=== PATIENT | female | born 1980 | race Caucasian/White ===

== ENCOUNTER 2016-08-05 01:44 | Emergency (ER) | payer SELFPAY ==
[2016-08-05 01:58] VITALS: BP 110/71
--- NOTE | 2016-08-05 02:30 | EDM.PDOC ---
ED HPI ALTERED MENTAL STATUS - General Chief Complaint: Drug or Alcohol Abuse Stated Complaint: [facility] Time Seen by Provider: 08/05/16 01:47 Source of Information: Reports: Patient History Limitations: Reports: No limitations - History of Present Illness INITIAL COMMENTS - FREE TEXT/NARRATIVE: This is a 36-year-old female. She was a local bar this evening and apparently she drank a few beers and started accepting drinks from strangers. She had onset about an hour ago of nausea and vomiting and just couldn't stop vomiting. She's had no diarrhea she denies any significant stomach pain. The ambulance started an IV on her and gave her some Zofran and by the time she arrived to the ER she was no longer nauseated. The patient is concerned that maybe someone slipped her something that was in those drinks. Right now she appears to be without distress and is calm. She denies any abdominal pain. - Related Data Allergies/ADRs: Allergies No Known Allergies Allergy (Verified 08/05/16 01:57) Home Meds: Home Meds . [No Known Home Meds] 08/05/16 [History] Past Medical History - Past Health History Medical/Surgical History: Denies Medical/Surgical History Social & Family History - Tobacco Use Smoking Status *Q: Never Smoker - Caffeine Use Caffeine Use: Reports: Coffee - Recreational Drug Use Recreational Drug Use: No ED ROS GENERAL - Review of Systems Review Of Systems: See Below Constitutional: Denies: fever, chills HEENT: Reports: No symptoms Respiratory: Reports: No Symptoms Cardiovascular: Reports: No symptoms GI/Abdominal: Reports: Nausea, Vomiting. Denies: Abdominal pain : Reports: no symptoms Musculoskeletal: Reports: no symptoms Skin: Reports: no symptoms Neurological: Reports: No Symptoms Psychiatric: Reports: No symptoms Hematologic/Lymphatic: Reports: no symptoms - Physical Exam Exam: See Below Exam Limited By: No limitations General Appearance: alert, WD/WN, no apparent distress Eye Exam: bilateral eye: normal inspection Ears: normal external exam Nose: normal inspection Throat/Mouth: Normal inspection, Normal lips, Normal voice Head Exam: normocephalic Neck: supple Respiratory/Chest: no respiratory distress, lungs clear, normal breath sounds Cardiovascular: regular rate, rhythm, no murmur GI/Abdominal: soft. No: distended, guarding, tender Neuro Exam (Abbreviated): alert, oriented, normal cognition, no motor/sensory deficits Back Exam: full range of motion Extremities: normal inspection, normal range of motion Psychiatric: normal affect, normal mood Skin Exam: Warm, Dry Course - Vital Signs Last Recorded V/S: Last Vital Signs Temp 97 F 08/05/16 01:53 Pulse 113 H 08/05/16 01:53 Resp 18 08/05/16 01:53 BP 110/71 08/05/16 01:53 Pulse Ox 97 08/05/16 01:53 - Orders/Labs/Meds Labs: Laboratory Tests 08/05/16 08/05/16 08/05/16 Range/Units 02:27 02:27 02:27 WBC 8.42 (3.98-10.04) K/mm3 RBC 3.96 L (3.98-5.22) M/mm3 Hgb 12.3 (11.2-15.7) gm/L Hct 37.7 (34.1-44.9) % MCV 95.2 H (79.4-94.8) fl MCH 31.1 (25.6-32.2) pg MCHC 32.6 (32.2-35.5) g/dl RDW Std Deviation 48.7 H (36.4-46.3) fL Plt Count 270 (182-369) K/mm3 MPV 9.5 (9.4-12.3) fl Neut % (Auto) 70.6 (34.0-71.1) % Lymph % (Auto) 19.5 (19.3-51.7) % [place] % (Auto) 8.8 (4.7-12.5) % Eos % (Auto) 0.8 (0.7-5.8) Baso % (Auto) 0.2 (0.1-1.2) % Neut # (Auto) 5.94 (1.56-6.13) K/mm3 Lymph # (Auto) 1.64 (1.18-3.74) K/mm3 [place] # (Auto) 0.74 H (0.24-0.36) K/mm3 Eos # (Auto) 0.07 (0.04-0.36) K/mm3 Baso # (Auto) 0.02 (0.01-0.08) K/mm3 Sodium 141 (136-145) mEq/L Potassium 3.8 (3.5-5.1) mEq/L Chloride 108 H (98-107) mEq/L Carbon Dioxide 24 (21-32) mEq/L Anion Gap 12.8 (5-15) BUN 11 (7-18) mg/dL Creatinine 0.8 (0.55-1.02) mg/dL Est Cr Clr Drug Dosing 99.01 mL/min Estimated GFR (MDRD) > 60 (>60) mL/min BUN/Creatinine Ratio 13.8 L (14-18) Glucose 127 H (74-106) mg/dL Calcium 7.9 L (8.5-10.1) mg/dL Total Bilirubin 0.1 L (0.2-1.0) mg/dL AST 38 H (15-37) U/L ALT 52 (14-59) U/L Alkaline Phosphatase 75 (46-116) U/L Total Protein 7.5 (6.4-8.2) g/dl Albumin 2.9 L (3.4-5.0) g/dl Globulin 4.6 gm/dL Albumin/Globulin Ratio 0.6 L (1-2) Lipase 258 (73-393) U/L HCG, Qual Negative (NEGATIVE) Urine Opiates Screen (NEGATIVE) Ur Buprenorphine Scrn (NEGATIVE) Ur Oxycodone Screen (NEGATIVE) Urine Methadone Screen (NEGATIVE) Ur Propoxyphene Screen (NEGATIVE) Ur Barbiturates Screen (NEGATIVE) Ur Tricyclics Screen (NEGATIVE) Ur Phencyclidine Scrn (NEGATIVE) Ur Amphetamine Screen (NEGATIVE) U Methamphetamines Scrn (NEGATIVE) U Benzodiazepines Scrn (NEGATIVE) U Cocaine Metab Screen (NEGATIVE) U Marijuana (THC) Screen (NEGATIVE) Ethyl Alcohol 0.20 (0.00) gm% 08/05/16 Range/Units 02:35 WBC (3.98-10.04) K/mm3 RBC (3.98-5.22) M/mm3 Hgb (11.2-15.7) gm/L Hct (34.1-44.9) % MCV (79.4-94.8) fl MCH (25.6-32.2) pg MCHC (32.2-35.5) g/dl RDW Std Deviation (36.4-46.3) fL Plt Count (182-369) K/mm3 MPV (9.4-12.3) fl Neut % (Auto) (34.0-71.1) % Lymph % (Auto) (19.3-51.7) % [place] % (Auto) (4.7-12.5) % Eos % (Auto) (0.7-5.8) Baso % (Auto) (0.1-1.2) % Neut # (Auto) (1.56-6.13) K/mm3 Lymph # (Auto) (1.18-3.74) K/mm3 [place] # (Auto) (0.24-0.36) K/mm3 Eos # (Auto) (0.04-0.36) K/mm3 Baso # (Auto) (0.01-0.08) K/mm3 Sodium (136-145) mEq/L Potassium (3.5-5.1) mEq/L Chloride (98-107) mEq/L Carbon Dioxide (21-32) mEq/L Anion Gap (5-15) BUN (7-18) mg/dL Creatinine (0.55-1.02) mg/dL Est Cr Clr Drug Dosing mL/min Estimated GFR (MDRD) (>60) mL/min BUN/Creatinine Ratio (14-18) Glucose (74-106) mg/dL Calcium (8.5-10.1) mg/dL Total Bilirubin (0.2-1.0) mg/dL AST (15-37) U/L ALT (14-59) U/L Alkaline Phosphatase (46-116) U/L Total Protein (6.4-8.2) g/dl Albumin (3.4-5.0) g/dl Globulin gm/dL Albumin/Globulin Ratio (1-2) Lipase (73-393) U/L HCG, Qual (NEGATIVE) Urine Opiates Screen Negative (NEGATIVE) Ur Buprenorphine Scrn Negative (NEGATIVE) Ur Oxycodone Screen Negative (NEGATIVE) Urine Methadone Screen Negative (NEGATIVE) Ur Propoxyphene Screen Negative (NEGATIVE) Ur Barbiturates Screen Negative (NEGATIVE) Ur Tricyclics Screen Negative (NEGATIVE) Ur Phencyclidine Scrn Negative (NEGATIVE) Ur Amphetamine Screen Negative (NEGATIVE) U Methamphetamines Scrn Negative (NEGATIVE) U Benzodiazepines Scrn Negative (NEGATIVE) U Cocaine Metab Screen Negative (NEGATIVE) U Marijuana (THC) Screen Negative (NEGATIVE) Ethyl Alcohol (0.00) gm% - Re-Assessments/Exams Free Text/Narrative Re-Assessment/Exam: 08/05/16 03:08 I spoke to the patient regarding her test results. I did not find anything in the urine drug screen to account for her nausea and vomiting. Her alcohol level is 0.2 which one would not think is enough to cause nausea and vomiting considering that she does drink on occasion. I again encouraged her not to take drinks from strangers since there is any number of things they can put in the drink to sedate her and or make her nauseated without us being able to determine what it is. Departure - Departure Time of Disposition: 03:22 Disposition: Home, Self-Care 01 Condition: good Clinical Impression: Nausea and vomiting Qualifiers: Vomiting type: unspecified Vomiting Intractability: non-intractable Qualified Code(s): R11.2 - Nausea with vomiting, unspecified Alcohol intoxication Qualifiers: Complication of substance-induced condition: uncomplicated Qualified Code(s): F10.920 - Alcohol use, unspecified with intoxication, uncomplicated Forms: ED Department Discharge Additional Instructions: Please avoid any free alcoholic drinks that you gets from strange men, stick to clear liquids only for the next 24 hours to settle your stomach, return to the ER if needed
== END 2016-08-05 03:43 | disposition home or self-care (01) ==
LOC: JD.ED 01:44
DX: F10.920 Alcohol use, unspecified with intoxication, uncomplicated (principal); R11.2 Nausea with vomiting, unspecified
CPT/HCPCS: 36415; 80053; 80306; 83690; 84703; 85025; 99285; G0480; 99282

== ENCOUNTER 2018-01-02 08:32 | Inpatient (IN) | payer MEDICAID ==
[2018-01-02] MEDS ORDERED: Adenosine 6 MG/2 ML SDV ONE (08:55)
[2018-01-02] MEDS ORDERED: Adenosine 12 MG/4 ML SDV ONE (08:55)
[2018-01-02] MEDS ORDERED: Adenosine 6 MG/2 ML SDV IVPUSH ONE ×2 (08:55→09:00)
--- NOTE | 2018-01-02 08:56 | EDM.PDOC ---
ED HPI GENERAL MEDICAL PROBLEM - General Chief Complaint: Chest Pain Stated Complaint: SOB Time Seen by Provider: 01/02/18 08:56 - History of Present Illness INITIAL COMMENTS - FREE TEXT/NARRATIVE: 37-year-old female presents emergency room with chest discomfort shortness of breath and palpitations. This started several hours ago. Patient cannot identify any triggering event just before this. However for the second time in her life she did a line of meth last night, also the patient is a habitual heavy alcohol drinker 8-12 drinks nightly. Her last drink was last night. She is uncertain of her hCG status but does not believe she is last period was a month and a half ago. She has no prior history of heart problems. Chest Pain Score (Numeric/FACES): 9 - Related Data Allergies Allergy/AdvReac Type Severity Reaction Status Date / Time No Known Allergies Allergy Verified 01/02/18 08:58 Home Meds: Home Meds . [No Known Home Meds] 08/05/16 [History] Past Medical History - Past Health History Medical/Surgical History: Denies Medical/Surgical History Social & Family History - Caffeine Use Caffeine Use: Reports: Coffee ED ROS GENERAL - Review of Systems Review Of Systems: See Below Constitutional: Denies: Fever, Chills HEENT: Denies: No Symptoms Respiratory: Reports: Shortness of Breath Cardiovascular: Reports: Chest Pain, Palpitations Endocrine: Reports: No Symptoms GI/Abdominal: Reports: No Symptoms : Reports: No Symptoms Musculoskeletal: Reports: No Symptoms Skin: Reports: No Symptoms Neurological: Reports: Dizziness Psychiatric: Reports: Anxiety. Denies: No Symptoms Hematologic/Lymphatic: Reports: No Symptoms Immunologic: Reports: No Symptoms ED EXAM, GENERAL - Physical Exam Exam: See Below Exam Limited By: No Limitations General Appearance: Alert, Mild Distress (Chest discomfort anxiety and shortness of breath) Eye Exam: Bilateral Eye: EOMI, Normal Inspection, PERRL Ears: Normal External Exam, Normal Canal, Hearing Grossly Normal, Normal TMs Nose: Normal Inspection, Normal Mucosa, No Blood Throat/Mouth: Normal Inspection, Normal Lips, Normal Teeth, Normal Gums, Normal Oropharynx, Normal Voice, No Airway Compromise Neck: Normal Inspection, Supple, Non-Tender, Full Range of Motion, Other ( Thyroid nonpalpable). No: Lymphadenopathy (L), Lymphadenopathy (R) Respiratory/Chest: No Respiratory Distress, Lungs Clear Cardiovascular: Regular Rate, Rhythm, No Edema, No Murmur, Tachycardia GI/Abdominal: Normal Bowel Sounds, Soft, Non-Tender Back Exam: Normal Inspection. No: CVA Tenderness (L), CVA Tenderness (R) Neurological: Alert, Oriented, Normal Cognition, No Motor/Sensory Deficits Psychiatric: Anxious Skin Exam: Warm, Dry, Intact Lymphatic: No Adenopathy Course - Vital Signs Last Recorded V/S: Last Vital Signs Temp 37.0 C 01/02/18 10:40 Pulse 128 H 01/02/18 10:40 Resp 20 01/02/18 10:40 BP 128/92 H 01/02/18 10:40 Pulse Ox 100 01/02/18 10:40 - Orders/Labs/Meds Orders: Active Orders 24 hr Category Date Time Status EKG Documentation Completion [RC] STAT Care 01/02/18 09:09 Active Chest 1V Frontal [CR] Stat Exams 01/02/18 09:09 Taken Lactated Ringers [Ringers, Lactated] 1,000 ml Med 01/02/18 10:25 Active IV STAT Magnesium Sulfate/Water [Magnesium Sulfate 2 GM in Med 01/02/18 12:10 Active Water 50 ML] 2 gm Premix Bag 1 bag IV ONETIME Potassium Chloride [KCl 10 MEQ in Water 100 ML] 10 meq Med 01/02/18 10:15 Active Premix Bag 1 bag IV Q1H Medication Orders Potassium Chloride 10 meq/ (Premix) 100 mls @ 100 mls/hr IV Q1H CHRISTELLE Stop: 01/02/18 14:14 Last Admin: 01/02/18 11:19 Dose: 100 mls/hr Infusion: 01/02/18 11:19 Dose: 100 mls/hr Admin: 01/02/18 10:20 Dose: 100 mls/hr Lactated Ringer's (Ringers, Lactated) 1,000 mls @ 150 mls/hr IV STAT ONE Stop: 01/02/18 17:04 Last Admin: 01/02/18 10:20 Dose: 150 mls/hr Magnesium Sulfate 2 gm/ Premix 50 mls @ 25 mls/hr IV ONETIME ONE Stop: 01/02/18 14:09 Last Admin: 01/02/18 12:10 Dose: 25 mls/hr Labs: Laboratory Tests 01/02/18 01/02/18 01/02/18 Range/Units 09:17 09:19 09:19 WBC 9.86 (3.98-10.04) K/mm3 RBC 5.01 (3.98-5.22) M/mm3 Hgb 13.8 (11.2-15.7) gm/L Hct 42.1 (34.1-44.9) % MCV 84.0 (79.4-94.8) fl MCH 27.5 (25.6-32.2) pg MCHC 32.8 (32.2-35.5) g/dl RDW Std Deviation 55.7 H (36.4-46.3) fL Plt Count 365 (182-369) K/mm3 MPV 9.4 (9.4-12.3) fl Neutrophils % (Manual) 73 H (40-60) % Band Neutrophils % 0 (0-10) % Lymphocytes % (Manual) 24 (20-40) % Atypical Lymphs % 0 % Monocytes % (Manual) 2 (2-10) % Eosinophils % (Manual) 1 (0.7-5.8) % Basophils % (Manual) 0 L (0.1-1.2) Platelet Estimate Adequate RBC Morph Comment Normal Sodium 132 L (136-145) mEq/L Potassium 2.6 L (3.5-5.1) mEq/L Chloride 95 L (98-107) mEq/L Carbon Dioxide 20 L (21-32) mEq/L Anion Gap 19.6 H (5-15) BUN 6 L (7-18) mg/dL Creatinine 1.0 (0.55-1.02) mg/dL Est Cr Clr Drug Dosing TNP Estimated GFR (MDRD) > 60 (>60) mL/min BUN/Creatinine Ratio 6.0 L (14-18) Glucose 131 H (74-106) mg/dL Calcium 11.7 H (8.5-10.1) mg/dL Magnesium 1.4 L (1.8-2.4) mg/dl Total Bilirubin 1.2 H (0.2-1.0) mg/dL AST 188 H (15-37) U/L ALT 163 H (14-59) U/L Alkaline Phosphatase 131 H (46-116) U/L Troponin I < 0.017 (0.00-0.056) ng/mL Total Protein 9.9 H (6.4-8.2) g/dl Albumin 3.4 (3.4-5.0) g/dl Globulin 6.5 gm/dL Albumin/Globulin Ratio 0.5 L (1-2) TSH 3rd Generation 2.136 (0.358-3.74) uIU/mL HCG, Quant < 1.0 mIU/mL Urine Color (Yellow) Urine Appearance (Clear) Urine pH (5.0-8.0) Ur Specific [place] (1.005-1.030) Urine Protein (Negative) Urine Glucose (UA) (Negative) Urine Ketones (Negative) Urine Occult Blood (Negative) Urine Nitrite (Negative) Urine Bilirubin (Negative) Urine Urobilinogen (0.2-1.0) Ur Leukocyte Esterase (Negative) Urine RBC (0-5) /hpf Urine WBC (0-5) /hpf Ur Epithelial Cells (0-5) /hpf Urine Bacteria (FEW) /hpf Urine Mucus (FEW) /hpf Urine Opiates Screen (NEGATIVE) Ur Buprenorphine Scrn (NEGATIVE) Ur Oxycodone Screen (NEGATIVE) Urine Methadone Screen (NEGATIVE) Ur Propoxyphene Screen (NEGATIVE) Ur Barbiturates Screen (NEGATIVE) Ur Tricyclics Screen (NEGATIVE) Ur Phencyclidine Scrn (NEGATIVE) Ur Amphetamine Screen (NEGATIVE) U Methamphetamines Scrn (NEGATIVE) U Benzodiazepines Scrn (NEGATIVE) U Cocaine Metab Screen (NEGATIVE) U Marijuana (THC) Screen (NEGATIVE) Ethyl Alcohol 0.01 (0.00) gm% 01/02/18 01/02/18 Range/Units 10:28 10:28 WBC (3.98-10.04) K/mm3 RBC (3.98-5.22) M/mm3 Hgb (11.2-15.7) gm/L Hct (34.1-44.9) % MCV (79.4-94.8) fl MCH (25.6-32.2) pg MCHC (32.2-35.5) g/dl RDW Std Deviation (36.4-46.3) fL Plt Count (182-369) K/mm3 MPV (9.4-12.3) fl Neutrophils % (Manual) (40-60) % Band Neutrophils % (0-10) % Lymphocytes % (Manual) (20-40) % Atypical Lymphs % % Monocytes % (Manual) (2-10) % Eosinophils % (Manual) (0.7-5.8) % Basophils % (Manual) (0.1-1.2) Platelet Estimate RBC Morph Comment Sodium (136-145) mEq/L Potassium (3.5-5.1) mEq/L Chloride (98-107) mEq/L Carbon Dioxide (21-32) mEq/L Anion Gap (5-15) BUN (7-18) mg/dL Creatinine (0.55-1.02) mg/dL Est Cr Clr Drug Dosing Estimated GFR (MDRD) (>60) mL/min BUN/Creatinine Ratio (14-18) Glucose (74-106) mg/dL Calcium (8.5-10.1) mg/dL Magnesium (1.8-2.4) mg/dl Total Bilirubin (0.2-1.0) mg/dL AST (15-37) U/L ALT (14-59) U/L Alkaline Phosphatase (46-116) U/L Troponin I (0.00-0.056) ng/mL Total Protein (6.4-8.2) g/dl Albumin (3.4-5.0) g/dl Globulin gm/dL Albumin/Globulin Ratio (1-2) TSH 3rd Generation (0.358-3.74) uIU/mL HCG, Quant mIU/mL Urine Color Yellow (Yellow) Urine Appearance Clear (Clear) Urine pH 7.0 (5.0-8.0) Ur Specific [place] 1.015 (1.005-1.030) Urine Protein Negative (Negative) Urine Glucose (UA) Negative (Negative) Urine Ketones Negative (Negative) Urine Occult Blood Negative (Negative) Urine Nitrite Negative (Negative) Urine Bilirubin Negative (Negative) Urine Urobilinogen 0.2 (0.2-1.0) Ur Leukocyte Esterase Trace H (Negative) Urine RBC 0-5 (0-5) /hpf Urine WBC 0-5 (0-5) /hpf Ur Epithelial Cells 0-5 (0-5) /hpf Urine Bacteria Few (FEW) /hpf Urine Mucus Few (FEW) /hpf Urine Opiates Screen Negative (NEGATIVE) Ur Buprenorphine Scrn Negative (NEGATIVE) Ur Oxycodone Screen Negative (NEGATIVE) Urine Methadone Screen Negative (NEGATIVE) Ur Propoxyphene Screen Negative (NEGATIVE) Ur Barbiturates Screen Negative (NEGATIVE) Ur Tricyclics Screen Negative (NEGATIVE) Ur Phencyclidine Scrn Negative (NEGATIVE) Ur Amphetamine Screen Presumptive positive H (NEGATIVE) U Methamphetamines Scrn Presumptive positive H (NEGATIVE) U Benzodiazepines Scrn Negative (NEGATIVE) U Cocaine Metab Screen Negative (NEGATIVE) U Marijuana (THC) Screen Negative (NEGATIVE) Ethyl Alcohol (0.00) gm% Meds: Medications Generic Name Dose Route Start Last Admin Trade Name Freq PRN Reason Stop Dose Admin Potassium Chloride 10 meq/ 100 mls @ 100 mls/hr 01/02/18 10:15 01/02/18 11:19 Premix IV 01/02/18 14:14 100 mls/hr Q1H CHRISTELLE Administration Lactated Ringer's 1,000 mls @ 150 mls/hr 01/02/18 10:25 01/02/18 10:20 Ringers, Lactated IV 01/02/18 17:04 150 mls/hr STAT ONE Administration Magnesium Sulfate 2 gm/ Premix 50 mls @ 25 mls/hr 01/02/18 12:10 01/02/18 12: 10 IV 01/02/18 14:09 25 mls/hr ONETIME ONE Administration Discontinued Medications Generic Name Dose Route Start Last Admin Trade Name Freq PRN Reason Stop Dose Admin Adenosine Confirm 01/02/18 08:55 01/02/18 09:15 Adenocard Administered 01/02/18 08:56 Not Given Dose 18 mg .ROUTE .STK-MED ONE Adenosine Confirm 01/02/18 08:55 01/02/18 09:15 Adenocard Administered 01/02/18 08:56 Not Given Dose 12 mg .ROUTE .STK-MED ONE Adenosine 6 mg 01/02/18 08:55 01/02/18 08:57 Adenocard IVPUSH 01/02/18 08:56 6 mg NOW ONE Administration Adenosine 12 mg 01/02/18 09:00 01/02/18 09:01 Adenocard IVPUSH 01/02/18 09:01 12 mg NOW ONE Administration Diltiazem HCl Confirm 01/02/18 09:04 01/02/18 09:15 Cardizem Administered 01/02/18 09:05 Not Given Dose 50 mg .ROUTE .STK-MED ONE Diltiazem HCl 10 mg 01/02/18 09:05 01/02/18 09:05 Cardizem IVPUSH 01/02/18 09:06 10 mg ONETIME ONE Administration Diltiazem HCl 10 mg 01/02/18 09:25 01/02/18 09:28 Cardizem IVPUSH 01/02/18 09:26 10 mg ONETIME ONE Administration Potassium Chloride Confirm 01/02/18 10:16 01/02/18 10:32 Kcl 10 Meq In Water 100 Ml Administered 01/02/18 10:17 Not Given Dose 200 mls @ as directed .ROUTE .STK-MED ONE Lactated Ringer's Confirm 01/02/18 10:16 01/02/18 10:44 Ringers, Lactated Administered 01/02/18 10:17 Not Given Dose 1,000 mls @ as directed .ROUTE .STK-MED ONE Sodium Chloride 1,000 mls @ 999 mls/hr 01/02/18 09:20 01/02/18 09:20 Normal Saline IV 01/02/18 10:20 999 mls/hr ONETIME ONE Administration Magnesium Sulfate 4 gm/ Premix 100 mls @ 25 mls/hr 01/02/18 11:58 01/02/18 12 :11 IV 01/02/18 11:59 Not Given ONETIME ONE Magnesium Sulfate Confirm 01/02/18 12:00 01/02/18 12:05 Magnesium Sulfate 2 Gm In Water 50 Ml Administered 01/02/18 12:01 Not Given Dose 50 mls @ as directed .ROUTE .STK-MED ONE Lorazepam 1 mg 01/02/18 10:03 01/02/18 10:08 Ativan IVPUSH 01/02/18 10:04 1 mg ONETIME ONE Administration Metoclopramide HCl Confirm 01/02/18 09:16 Reglan Administered 01/02/18 09:17 Dose 10 mg .ROUTE .STK-MED ONE Midazolam HCl Confirm 01/02/18 09:14 Versed 1 Mg/Ml Administered 01/02/18 09:15 Dose 4 mg .ROUTE .STK-MED ONE Propofol Confirm 01/02/18 09:15 Diprivan 20 Ml Administered 01/02/18 09:16 Dose 200 mg .ROUTE .STK-MED ONE - Re-Assessments/Exams Free Text/Narrative Re-Assessment/Exam: 01/02/18 12:10 Patient was brought to the emergency room with breathing difficulties and some chest pressure. She was noticed to be in supraventricular tachycardia rate 162- 163. She was attempted with adenosine for 6 mg and then 12 mg with virtually no effect except for some mild slowing of the pulse rate that was brief it dropped to the 150s no pauses. She was taken to trauma to for cardioversion she was given 4 mg of Versed the did not affect much she was given propofol and using biphasic direct cardioversion synchronized was attempted with 50 J with no effect and then 100 J with no effect. After the adenosine she received 10 mg of diltiazem had a transient slowing this was repeated. Fluids were running labs pending. Her labs did come back which show a marked hypokalemia and her magnesium is 1.4 she is started on supplements for these. Case was discussed with Dr. Fuller manager environmental health at [facility] who agrees with treatment plan patient will be admitted for electrolyte replacement therapy and further observation case discussed with Dr. Shay our hospitalist patient will go to ICU. Currently the patient is not having chest difficulty or breathing difficulties her pulse is in the 120s to low 130s. Departure - Departure Time of Disposition: 11:35 Disposition: Admitted As Inpatient 67 Clinical Impression: Supraventricular tachycardia, Hypokalemia, Hypomagnesemia, Alcoholism, Methamphetamine abuse Referrals: PCP,None [Primary Care Provider] - Forms: ED Department Discharge - My Orders Last 24 Hours: My Active Orders 01/02/18 09:09 EKG Documentation Completion [RC] STAT Chest 1V Frontal [CR] Stat 01/02/18 10:15 Potassium Chloride [KCl 10 MEQ in Water 100 ML] 10 meq Premix Bag 1 bag IV Q1H 01/02/18 10:25 Lactated Ringers [Ringers, Lactated] 1,000 ml IV STAT 01/02/18 12:10 Magnesium Sulfate/Water [Magnesium Sulfate 2 GM in Water 50 ML] 2 gm Premix Bag 1 bag IV ONETIME - Assessment/Plan Last 24 Hours: My Active Orders 01/02/18 09:09 EKG Documentation Completion [RC] STAT Chest 1V Frontal [CR] Stat 01/02/18 10:15 Potassium Chloride [KCl 10 MEQ in Water 100 ML] 10 meq Premix Bag 1 bag IV Q1H 01/02/18 10:25 Lactated Ringers [Ringers, Lactated] 1,000 ml IV STAT 01/02/18 12:10 Magnesium Sulfate/Water [Magnesium Sulfate 2 GM in Water 50 ML] 2 gm Premix Bag 1 bag IV ONETIME
[2018-01-02] MEDS ORDERED: Diltiazem 50 MG/10 ML SDV ONE (09:04)
[2018-01-02] MEDS ORDERED: Diltiazem 50 MG/10 ML SDV IVPUSH ONE ×2 (09:05→09:25)
[2018-01-02] MEDS ORDERED: Midazolam 1 MG/ML 2 ML SDV ONE (09:14)
[2018-01-02] MEDS ORDERED: Propofol 200 MG/20 ML SDV ONE (09:15)
[2018-01-02] MEDS ORDERED: Metoclopramide 10 MG/2 ML SDV ONE (09:16)
[2018-01-02] MEDS ORDERED: Sodium Chloride 0.9% 1,000 ML IV ONE (09:20)
--- NOTE | 2018-01-02 10:01 | PCM.PREANE ---
Preanesthetic Assessment - Procedure Proposed Procedure: emergency cardioversion - Anesthesia/Transfusion/Family Hx Anesthesia History: Prior Anesthesia Without Reaction Family History of Anesthesia Reaction: No Transfusion History: No Prior Transfusion(s) - Review of Systems General: No Symptoms Pulmonary: Shortness of Breath (this am at 5) Cardiovascular: Chest Pain, Lightheadedness (this am at 5) Gastrointestinal: No Symptoms Neurological: No Symptoms Other: Reports: Depression - Physical Assessment NPO Status Date: 01/02/18 NPO Status Time: 06:00 (3 alcira drinks and an orange) Pulse: 170 Blood Pressure: 153/97 Vital Signs: Last Vital Signs Temp Pulse 138 H 01/02/18 09:28 Resp BP 138/95 H 01/02/18 09:28 Pulse Ox Height: 5 ft 6 in Weight: 88.451 kg ASA Class: 2E Mental Status: Alert & Oriented x3 Airway Class: Mallampati = 1 Dentition: Reports: Normal Dentition Thyro-Mental Finger Breadths: 3 Mouth Opening Finger Breadths: 3 ROM/Head Extension: Full Lungs: Clear to Auscultation, Normal Respiratory Effort Cardiovascular: Regular Rate, Tachycardia - Lab Values: Laboratory Last Values WBC 9.86 K/mm3 (3.98-10.04) 01/02/18 09:19 RBC 5.01 M/mm3 (3.98-5.22) 01/02/18 09:19 Hgb 13.8 gm/L (11.2-15.7) 01/02/18 09:19 Hct 42.1 % (34.1-44.9) 01/02/18 09:19 MCV 84.0 fl (79.4-94.8) 01/02/18 09:19 MCH 27.5 pg (25.6-32.2) 01/02/18 09:19 MCHC 32.8 g/dl (32.2-35.5) 01/02/18 09:19 RDW Std Deviation 55.7 fL (36.4-46.3) H 01/02/18 09:19 Plt Count 365 K/mm3 (182-369) 01/02/18 09:19 MPV 9.4 fl (9.4-12.3) 01/02/18 09:19 Neutrophils % (Manual) 73 % (40-60) H 01/02/18 09:19 Band Neutrophils % 0 % (0-10) 01/02/18 09:19 Lymphocytes % (Manual) 24 % (20-40) 01/02/18 09:19 Atypical Lymphs % 0 % 01/02/18 09:19 Monocytes % (Manual) 2 % (2-10) 01/02/18 09:19 Eosinophils % (Manual) 1 % (0.7-5.8) 01/02/18 09:19 Basophils % (Manual) 0 (0.1-1.2) L 01/02/18 09:19 Platelet Estimate Adequate 01/02/18 09:19 RBC Morph Comment Normal 01/02/18 09:19 - Allergies Allergies/Adverse Reactions: Allergies Allergy/AdvReac Type Severity Reaction Status Date / Time No Known Allergies Allergy Verified 01/02/18 08:58 - Blood Blood Available: No - Acknowledgements Anesthesia Type Planned: MAC Pt an Appropriate Candidate for the Planned Anesthesia: Yes Alternatives and Risks of Anesthesia Discussed w Pt/Guardian: Yes Pt/Guardian Understands and Agrees with Anesthesia Plan: Yes PreAnesthesia Questionnaire - Past Health History Medical/Surgical History: Denies Medical/Surgical History Other HEENT History: states is suppose to wear eyeglasses, has not been to routine eye doctor. Cardiovascular History: Reports: Other (See Below) (sister with tacycardia issues) Respiratory History: Reports: Other (See Below) Other Respiratory History: "hayfever" in childhood. 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 Thought alcira would help- had 3 drinks. Also ate orange at 6 am. In Er and needing cardioversion after other attempts failed. Alert and oriented. Discussed possibly being partly awake for cardioversion because of full stomach. Agrees. - SUBSTANCE USE Smoking Status *Q: Never Smoker Second Hand Smoke Exposure: No Days Per Week of Alcohol Use: 7 Number of Drinks Per Day: 10 Total Drinks Per Week: 70 Recreational Drug Use History: Yes Recreational Drug Type: Reports: Marijuana/Hashish, Methamphetamine - HOME MEDS Home Medications: Home Meds . [No Known Home Meds] 08/05/16 [History] - CURRENT (IN HOUSE) MEDS Current Meds: Current Medications Discontinued Medications Adenosine (Adenocard) Confirm Administered Dose 18 mg .ROUTE .STK-MED ONE Stop: 01/02/18 08:56 Last Admin: 01/02/18 09:15 Dose: Not Given Adenosine (Adenocard) Confirm Administered Dose 12 mg .ROUTE .STK-MED ONE Stop: 01/02/18 08:56 Last Admin: 01/02/18 09:15 Dose: Not Given Adenosine (Adenocard) 6 mg IVPUSH NOW ONE Stop: 01/02/18 08:56 Last Admin: 01/02/18 08:57 Dose: 6 mg Adenosine (Adenocard) 12 mg IVPUSH NOW ONE Stop: 01/02/18 09:01 Last Admin: 01/02/18 09:01 Dose: 12 mg Diltiazem HCl (Cardizem) Confirm Administered Dose 50 mg .ROUTE .STK-MED ONE Stop: 01/02/18 09:05 Last Admin: 01/02/18 09:15 Dose: Not Given Diltiazem HCl (Cardizem) 10 mg IVPUSH ONETIME ONE Stop: 01/02/18 09:06 Last Admin: 01/02/18 09:05 Dose: 10 mg Diltiazem HCl (Cardizem) 10 mg IVPUSH ONETIME ONE Stop: 01/02/18 09:26 Last Admin: 01/02/18 09:28 Dose: 10 mg Metoclopramide HCl (Reglan) Confirm Administered Dose 10 mg .ROUTE .STK-MED ONE Stop: 01/02/18 09:17 Midazolam HCl (Versed 1 Mg/Ml) Confirm Administered Dose 4 mg .ROUTE .STK-MED ONE Stop: 01/02/18 09:15 Propofol (Diprivan 20 Ml) Confirm Administered Dose 200 mg .ROUTE .STK-MED ONE Stop: 01/02/18 09:16
[2018-01-02] MEDS ORDERED: LORazepam 2 MG/ML SDV IVPUSH ONE (10:03)
[2018-01-02] MEDS ORDERED: Lactated Ringers 1,000 ML ONE (10:16)
[2018-01-02] MEDS: Potassium Chloride 10 MEQ in Premix Bag 1 BAG IV SCH ×7 (10:20→18:07)
[2018-01-02] MEDS ORDERED: Lactated Ringers 1,000 ML IV ONE (10:25)
--- NOTE | 2018-01-02 10:30 | PCM48HPAN ---
Post Anesthesia Note - EVALUATION WITHIN 48HRS OF ANESTHETIC Vital Signs in Normal Range: No (HR still elevated- continue meds) Patient Participated in Evaluation: Yes Respiratory Function Stable: Yes Airway Patent: Yes Cardiovascular Function Stable: Yes (States feels better- up to commode) Hydration Status Stable: Yes Pain Control Satisfactory: Yes Nausea and Vomiting Control Satisfactory: Yes Mental Status Recovered: Yes Pulse Rate: 133 SaO2: 100 Resp Rate: 20 Blood Pressure: 153/97
[2018-01-02] MEDS ORDERED: Magnesium Sulfate/Water 4 GM in Premix Bag 1 BAG IV ONE (11:58)
[2018-01-02] MEDS ORDERED: Magnesium Sulfate/Water 50 ML ONE (12:00)
[2018-01-02] MEDS ORDERED: Magnesium Sulfate/Water 2 GM in Premix Bag 1 BAG IV ONE ×2 (12:10→16:00)
[2018-01-02] MEDS ORDERED: Nicotine 21 MG/24 Hr Patch TRDERM PRN (12:46)
[2018-01-02] MEDS ORDERED: hydrALAZINE 20 MG/ML SDV IVPUSH PRN (12:46)
[2018-01-02] MEDS ORDERED: LORazepam 2 MG/ML SDV IVPUSH PRN ×2 (12:46→14:23)
[2018-01-02] MEDS ORDERED: Metoprolol Tartrate 5 MG/5 ML SDV IVPUSH PRN (12:46)
[2018-01-02] MEDS ORDERED: Ondansetron 4 MG/2 ML SDV IV PRN (12:48)
[2018-01-02] MEDS ORDERED: LORazepam 2 MG/ML SDV IV PRN (12:48)
[2018-01-02] MEDS ORDERED: Albuterol/Ipratropium 3.0-0.5 MG/3 ML Neb Soln NEB PRN (12:48)
[2018-01-02] MEDS ORDERED: Pantoprazole 40 MG Vial IVPUSH ONE (12:48)
[2018-01-02] MEDS ORDERED: oxyCODONE 5 MG Tab PO PRN (12:48)
[2018-01-02] MEDS ORDERED: Promethazine 12.5 MG in Sodium Chloride 0.9% 50 ML IV PRN (12:48)
[2018-01-02] MEDS ORDERED: cloNIDine 0.1 MG Tab PO PRN (12:48)
[2018-01-02] MEDS ORDERED: Ibuprofen 400 MG Tab PO PRN (12:48)
[2018-01-02] MEDS ORDERED: Haloperidol Lactate 5 MG/ML SDV IM PRN (12:48)
[2018-01-02] MEDS ORDERED: HYDROmorphone 0.5 MG/0.5 ML Syringe IVPUSH PRN (12:48)
[2018-01-02] MEDS ORDERED: Metoprolol Tartrate 50 MG Tab PO ONE (12:54)
--- NOTE | 2018-01-02 12:56 | PCM.HP ---
H&P History of Present Illness - General Date of Service: 01/02/18 Admit Problem/Dx: SVT and Substance Abuse Source of Information: Patient, Family, Provider, RN Notes Reviewed History Limitations: Reports: No Limitations - History of Present Illness Initial Comments - Free Text/Narative: This is a 37 yo white female with past medical hx/o depression and chronic substance abuse who comes in for evaluation of chest discomfort associated with heart palpitations and shortness of breath that started several hours ago. She denies doing anything unusual. However she admits to using methamphetamine last night. She also drinks a pack (10) of small bottled ratna daily. Her last drink was this morning with 2 small of it. Patient carries no hx/o thyroid or cardiac problems. She reports no chemical rehab treatment in the past. She admits to drinking alcohol heavily for many years now. Her chronic alcohol use has now affecting her quality of life and she wants to get better. She states her drinking and depression had gotten worse since her took away her children from her when they all went to [facility] in [place]. Patient denies being suicidal or homicidal. She is not on any anti-depressant and is not seeing any specialist for her psychiatric illness. He initial work up in ED shows an unremarkable CBC. Her chemistry is significant for sodium of 132, potassium of 2.6, Cl of 95, CO2 of 20, AG of 19.6, BUN of 6, BS of 131, Ca2 + of 11.7, Mg of 1.4, Total bilirubin of 1.2, AST of 188, ALT of 163, GGT of 353 , Alk phos of 131, Total protein of 9.9. Her TSH and HcG are both wnl. Her UA is negative for UTI. Her UDS is pos for Methamphetamines and Amphetamines. Her ANTHONY level is 0.01. While in ED she was treated for SVT to include chemical cardioversion with adenosine. Unfortunately, she did not respond to initial treatment and therefore she is coming to us for further medical management. Patient is full code. Chest Pain Score (Numeric/FACES): 9 - Related Data Allergies/Adverse Reactions: Allergies Allergy/AdvReac Type Severity Reaction Status Date / Time No Known Allergies Allergy Verified 01/02/18 13:54 Home Medications: Home Meds . [No Known Home Meds] 08/05/16 [History] Past Medical History - Past Health History Medical/Surgical History: Denies Medical/Surgical History Other HEENT History: states is suppose to wear eyeglasses, has not been to routine eye doctor. Cardiovascular History: Reports: Other (See Below) (sister with tacycardia issues) Respiratory History: Reports: Other (See Below) Other Respiratory History: "hayfever" in childhood. Gastrointestinal History: Reports: None IMAGERY ANALYST History: Reports: Neurological History: Reports: Head Trauma Psychiatric History: Reports: Addiction, Depression, Suicide Attempt, Suicidal Ideation - Infectious Disease History Infectious Disease History: Reports: Chicken Pox, Hepatitis C, Other (See Below) Other Infectious Disease History: malaria - Past Surgical History Female Surgical History: Reports: Section - History Comment History Comment: Snorted a line of meth last evening-her second time- occasional marijuana use- Pt complained of chest pain and shortness of breath this am at 5. Thought ratna would help- had 3 drinks. Also ate orange at 6 am. In Er and needing cardioversion after other attempts failed. Alert and oriented. Discussed possibly being partly awake for cardioversion because of full stomach. Agrees. Social & Family History - Tobacco Use Smoking Status *Q: Never Smoker Second Hand Smoke Exposure: No - Caffeine Use Caffeine Use: Reports: Coffee - Alcohol Use Days Per Week of Alcohol Use: 7 Number of Drinks Per Day: 10 Total Drinks Per Week: 70 - Recreational Drug Use Recreational Drug Use: Yes Recreational Drug Type: Reports: Marijuana/Hashish, Methamphetamine H&P Review of Systems - Review of Systems: Review Of Systems: See Below General: Denies: Fever, Chills, Fatigue HEENT: Reports: No Symptoms Pulmonary: Reports: Shortness of Breath Cardiovascular: Reports: Palpitations, Other (chest discomfort). Denies: Chest Pain, Dyspnea on Exertion, Orthopnea, Edema, Lightheadedness, Syncope, Claudication, Blood Pressure Problem Gastrointestinal: Denies: Abdominal Pain, Nausea, Vomiting Genitourinary: Reports: No Symptoms Musculoskeletal: Reports: No Symptoms Skin: Denies: Cyanosis, Pallor, Diaphoresis, Erythema Psychiatric: Reports: Anxiety. Denies: Depression, Agitation, Hallucinations, Suicidal Ideation, Homicidal Ideation Neurological: Reports: Dizziness, Tremors. Denies: Confusion, Headache, Numbness, Paresthesia, Seizure, Tingling, Trouble Speaking, Difficulty Walking, Weakness, Change in Speech, Gait Disturbance Hematologic/Lymphatic: Reports: No Symptoms Immunologic: Reports: No Symptoms Exam - Exam Exam: See Below - Vital Signs Vital Signs: Last Vital Signs Temp 37.0 C 01/02/18 10:40 Pulse 128 H 01/02/18 10:40 Resp 20 01/02/18 10:40 BP 128/92 H 01/02/18 10:40 Pulse Ox 100 01/02/18 10:40 Weight: 88.451 kg - Exam General: Alert, Oriented, Cooperative. No: Mild Distress HEENT: Conjunctiva Clear, EACs Clear, EOMI, Hearing Intact, Mucosa Moist & Blanchard , Nares Patent, Normal Nasal Septum, Posterior Pharynx Clear, Pupils Equal, Pupils Reactive Neck: Supple Lungs: Clear to Auscultation, Normal Respiratory Effort Cardiovascular: Regular Rhythm, Tachycardia GI/Abdominal Exam: Normal Bowel Sounds, Soft, Non-Tender, No Organomegaly, No Distention, No Abnormal Bruit, No Mass (Female) Exam: Deferred Rectal (Female) Exam: Deferred Back Exam: Normal Inspection, Decreased Range of Motion Extremities: Normal Inspection, Normal Range of Motion, Non-Tender, No Pedal Edema, Normal Capillary Refill Peripheral Pulses: 3+: Posterior Tibial (L), Posterior Tibial (R), Dorsalis Pedis (L), Dorsalis Pedis (R) Skin: Warm, Dry, Intact Neuro Extensive - Mental Status: Oriented x3, Normal Cognition, Memory Intact Neuro Extensive - Motor, Sensory, Reflexes: CN II-XII Intact, Normal Gait Psychiatric: Other (mild tremors). No: Alert, Normal Affect, Normal Mood, Anxious, Agitated - Patient Data Lab Results Last 24 hrs: Laboratory Results - last 24 hr 01/02/18 01/02/18 01/02/18 Range/Units 09:17 09:19 09:19 WBC 9.86 (3.98-10.04) K/mm3 RBC 5.01 (3.98-5.22) M/mm3 Hgb 13.8 (11.2-15.7) gm/L Hct 42.1 (34.1-44.9) % MCV 84.0 (79.4-94.8) fl MCH 27.5 (25.6-32.2) pg MCHC 32.8 (32.2-35.5) g/dl RDW Std Deviation 55.7 H (36.4-46.3) fL Plt Count 365 (182-369) K/mm3 MPV 9.4 (9.4-12.3) fl Neutrophils % (Manual) 73 H (40-60) % Band Neutrophils % 0 (0-10) % Lymphocytes % (Manual) 24 (20-40) % Atypical Lymphs % 0 % Monocytes % (Manual) 2 (2-10) % Eosinophils % (Manual) 1 (0.7-5.8) % Basophils % (Manual) 0 L (0.1-1.2) Platelet Estimate Adequate RBC Morph Comment Normal Sodium 132 L (136-145) mEq/L Potassium 2.6 L (3.5-5.1) mEq/L Chloride 95 L (98-107) mEq/L Carbon Dioxide 20 L (21-32) mEq/L Anion Gap 19.6 H (5-15) BUN 6 L (7-18) mg/dL Creatinine 1.0 (0.55-1.02) mg/dL Est Cr Clr Drug Dosing TNP Estimated GFR (MDRD) > 60 (>60) mL/min BUN/Creatinine Ratio 6.0 L (14-18) Glucose 131 H (74-106) mg/dL Calcium 11.7 H (8.5-10.1) mg/dL Magnesium 1.4 L (1.8-2.4) mg/dl Total Bilirubin 1.2 H (0.2-1.0) mg/dL AST 188 H (15-37) U/L ALT 163 H (14-59) U/L Alkaline Phosphatase 131 H (46-116) U/L Troponin I < 0.017 (0.00-0.056) ng/mL Total Protein 9.9 H (6.4-8.2) g/dl Albumin 3.4 (3.4-5.0) g/dl Globulin 6.5 gm/dL Albumin/Globulin Ratio 0.5 L (1-2) TSH 3rd Generation 2.136 (0.358-3.74) uIU/mL HCG, Quant < 1.0 mIU/mL Urine Color (Yellow) Urine Appearance (Clear) Urine pH (5.0-8.0) Ur Specific [place] (1.005-1.030) Urine Protein (Negative) Urine Glucose (UA) (Negative) Urine Ketones (Negative) Urine Occult Blood (Negative) Urine Nitrite (Negative) Urine Bilirubin (Negative) Urine Urobilinogen (0.2-1.0) Ur Leukocyte Esterase (Negative) Urine RBC (0-5) /hpf Urine WBC (0-5) /hpf Ur Epithelial Cells (0-5) /hpf Urine Bacteria (FEW) /hpf Urine Mucus (FEW) /hpf Urine Opiates Screen (NEGATIVE) Ur Buprenorphine Scrn (NEGATIVE) Ur Oxycodone Screen (NEGATIVE) Urine Methadone Screen (NEGATIVE) Ur Propoxyphene Screen (NEGATIVE) Ur Barbiturates Screen (NEGATIVE) Ur Tricyclics Screen (NEGATIVE) Ur Phencyclidine Scrn (NEGATIVE) Ur Amphetamine Screen (NEGATIVE) U Methamphetamines Scrn (NEGATIVE) U Benzodiazepines Scrn (NEGATIVE) U Cocaine Metab Screen (NEGATIVE) U Marijuana (THC) Screen (NEGATIVE) Ethyl Alcohol 0.01 (0.00) gm% 01/02/18 01/02/18 Range/Units 10:28 10:28 WBC (3.98-10.04) K/mm3 RBC (3.98-5.22) M/mm3 Hgb (11.2-15.7) gm/L Hct (34.1-44.9) % MCV (79.4-94.8) fl MCH (25.6-32.2) pg MCHC (32.2-35.5) g/dl RDW Std Deviation (36.4-46.3) fL Plt Count (182-369) K/mm3 MPV (9.4-12.3) fl Neutrophils % (Manual) (40-60) % Band Neutrophils % (0-10) % Lymphocytes % (Manual) (20-40) % Atypical Lymphs % % Monocytes % (Manual) (2-10) % Eosinophils % (Manual) (0.7-5.8) % Basophils % (Manual) (0.1-1.2) Platelet Estimate RBC Morph Comment Sodium (136-145) mEq/L Potassium (3.5-5.1) mEq/L Chloride (98-107) mEq/L Carbon Dioxide (21-32) mEq/L Anion Gap (5-15) BUN (7-18) mg/dL Creatinine (0.55-1.02) mg/dL Est Cr Clr Drug Dosing Estimated GFR (MDRD) (>60) mL/min BUN/Creatinine Ratio (14-18) Glucose (74-106) mg/dL Calcium (8.5-10.1) mg/dL Magnesium (1.8-2.4) mg/dl Total Bilirubin (0.2-1.0) mg/dL AST (15-37) U/L ALT (14-59) U/L Alkaline Phosphatase (46-116) U/L Troponin I (0.00-0.056) ng/mL Total Protein (6.4-8.2) g/dl Albumin (3.4-5.0) g/dl Globulin gm/dL Albumin/Globulin Ratio (1-2) TSH 3rd Generation (0.358-3.74) uIU/mL HCG, Quant mIU/mL Urine Color Yellow (Yellow) Urine Appearance Clear (Clear) Urine pH 7.0 (5.0-8.0) Ur Specific [place] 1.015 (1.005-1.030) Urine Protein Negative (Negative) Urine Glucose (UA) Negative (Negative) Urine Ketones Negative (Negative) Urine Occult Blood Negative (Negative) Urine Nitrite Negative (Negative) Urine Bilirubin Negative (Negative) Urine Urobilinogen 0.2 (0.2-1.0) Ur Leukocyte Esterase Trace H (Negative) Urine RBC 0-5 (0-5) /hpf Urine WBC 0-5 (0-5) /hpf Ur Epithelial Cells 0-5 (0-5) /hpf Urine Bacteria Few (FEW) /hpf Urine Mucus Few (FEW) /hpf Urine Opiates Screen Negative (NEGATIVE) Ur Buprenorphine Scrn Negative (NEGATIVE) Ur Oxycodone Screen Negative (NEGATIVE) Urine Methadone Screen Negative (NEGATIVE) Ur Propoxyphene Screen Negative (NEGATIVE) Ur Barbiturates Screen Negative (NEGATIVE) Ur Tricyclics Screen Negative (NEGATIVE) Ur Phencyclidine Scrn Negative (NEGATIVE) Ur Amphetamine Screen Presumptive positive H (NEGATIVE) U Methamphetamines Scrn Presumptive positive H (NEGATIVE) U Benzodiazepines Scrn Negative (NEGATIVE) U Cocaine Metab Screen Negative (NEGATIVE) U Marijuana (THC) Screen Negative (NEGATIVE) Ethyl Alcohol (0.00) gm% Result Diagrams: 01/02/18 09:19 01/02/18 09:19 Problem List Initiated/Reviewed/Updated: Yes Orders Last 24hrs: Active Orders 24 hr Category Date Time Status CIWAA Assessment [RC] Q15M Care 01/02/18 12:48 Active CIWAA Assessment [RC] Q1H Care 01/02/18 12:48 Active CIWAA Assessment [RC] Q30M Care 01/02/18 12:48 Active CIWAA Assessment [RC] Q4H Care 01/02/18 12:48 Active Cardiac Monitoring [RC] CONTINUOUS Care 01/02/18 12:48 Active EKG Documentation Completion [RC] STAT Care 01/02/18 09:09 Active Height and Weight [RC] DAILY Care 01/02/18 12:48 Active Intake and Output [RC] QSHIFT Care 01/02/18 12:48 Active Notify Provider Consults [RC] ASDIRECTED Care 01/02/18 12:51 Active Notify Provider [RC] PRN Care 01/02/18 12:48 Active Oxygen Therapy [RC] PRN Care 01/02/18 12:48 Active RT Aerosol Therapy [RC] ASDIRECTED Care 01/02/18 12:50 Active Up With Assistance [RC] ASDIRECTED Care 01/02/18 12:48 Active Up ad Serina [RC] ASDIRECTED Care 01/02/18 12:48 Active VTE/DVT Education [RC] PER UNIT ROUTINE Care 01/02/18 12:48 Active Vital Signs [RC] Q4H Care 01/02/18 12:48 Active Consult to Case Management/Manufacturing Storeperson [CONS] Cons 01/02/18 12:48 Active Routine Consult to Physician [CONS] Routine Cons 01/02/18 12:48 Active Consult to Spiritual Care [CONS] Routine Cons 01/02/18 12:48 Active Regular Diet [DIET] Diet 01/02/18 Lunch Active Abdomen Ltd [US] Stat Exams 01/02/18 12:47 Ordered Chest 1V Frontal [CR] Stat Exams 01/02/18 09:09 Taken Echo Comp wo Cont [US] Stat Exams 01/02/18 12:54 Ordered CBC WITH AUTO DIFF [HEME] AM Lab 01/03/18 05:11 Ordered COMPREHENSIVE METABOLIC PN,CMP [CHEM] AM Lab 01/03/18 05:11 Ordered COMPREHENSIVE METABOLIC PN,CMP [CHEM] AM Lab 01/04/18 05:11 Ordered COMPREHENSIVE METABOLIC PN,CMP [CHEM] AM Lab 01/05/18 05:11 Ordered COMPREHENSIVE METABOLIC PN,CMP [CHEM] AM Lab 01/06/18 05:11 Ordered GAMMA GLUTAMYL TRANSFERASE,GGT [CHEM] Stat Lab 01/02/18 12:46 Ordered MAGNESIUM [CHEM] AM Lab 01/03/18 05:11 Ordered MAGNESIUM [CHEM] AM Lab 01/04/18 05:11 Ordered MAGNESIUM [CHEM] AM Lab 01/05/18 05:11 Ordered MAGNESIUM [CHEM] AM Lab 01/06/18 05:11 Ordered Albuterol/Ipratropium [DuoNeb 3.0-0.5 MG/3 ML] Med 01/02/18 12:48 Ordered 3 ml NEB Q4H PRN Famotidine [Pepcid] Med 01/02/18 21:00 Ordered 20 mg PO Q12H Folic Acid Med 01/03/18 09:00 Ordered 1 mg PO DAILY HYDROmorphone [Dilaudid] Med 01/02/18 12:48 Ordered 0.25 mg IVPUSH Q2H PRN Haloperidol Lactate [Haldol] Med 01/02/18 12:48 Ordered 2 mg IM Q4H PRN Ibuprofen [Motrin] Med 01/02/18 12:48 Ordered 400 mg PO Q6H PRN LORazepam [Ativan] Med 01/02/18 12:48 Ordered 1 mg IV Q6H PRN LORazepam [Ativan] Med 01/02/18 12:46 Ordered 2 mg IVPUSH Q4H PRN Lactated Ringers [Ringers, Lactated] 1,000 ml Med 01/02/18 10:25 Active IV STAT Magnesium Rep Pharmacy to Dose [Pharmacy to Dose - Med 01/02/18 13:00 Ordered Magnesium Replacement] 1 dose .XX ASDIRECTED Magnesium Sulfate/Water [Magnesium Sulfate 2 GM in Med 01/02/18 12:10 Active Water 50 ML] 2 gm Premix Bag 1 bag IV ONETIME Metoprolol Tartrate [Lopressor] Med 01/02/18 12:46 Ordered 5 mg IVPUSH Q4H PRN Metoprolol Tartrate [Lopressor] Med 01/02/18 12:54 Once 50 mg PO ONETIME ONE Metoprolol Tartrate [Lopressor] Med 01/02/18 21:00 Ordered 50 mg PO Q12H Multivitamins,Therapeutic [Thera] Med 01/03/18 09:00 Ordered 1 each PO DAILY Nicotine [Habitrol] Med 01/02/18 12:46 Ordered 21 mg TRDERM DAILY PRN Ondansetron [Zofran] Med 01/02/18 12:48 Ordered 4 mg IV Q6H PRN Pantoprazole [ProTONIX IV] Med 01/02/18 12:48 Once 40 mg IVPUSH ONETIME ONE Potassium Chloride [KCl 10 MEQ in Water 100 ML] 10 meq Med 01/02/18 10:15 Active Premix Bag 1 bag IV Q1H Potassium Rep Pharmacy to Dose [Pharmacy to Dose - Med 01/02/18 13:00 Ordered Potassium Replacement] 1 dose .XX ASDIRECTED Promethazine [Phenergan] 12.5 mg Med 01/02/18 12:48 Ordered Sodium Chloride 0.9% [Normal Saline] 50 ml IV Q6H QUEtiapine [SEROquel] Med 01/02/18 21:00 Ordered 50 mg PO BEDTIME Thiamine [Vitamin B-1] Med 01/03/18 09:00 Ordered 100 mg PO DAILY Thiamine [Vitamin B-1] 200 mg Med 01/02/18 12:48 Ordered Sodium Chloride 0.9% [Normal Saline] 50 ml IV ONETIME Topiramate [Topamax] Med 01/02/18 21:00 Ordered 25 mg PO BID cloNIDine [Catapres] Med 01/02/18 12:48 Ordered 0.1 mg PO Q4H PRN hydrALAZINE [Apresoline] Med 01/02/18 12:46 Ordered 20 mg IVPUSH Q4H PRN oxyCODONE Med 01/02/18 12:48 Ordered 5 mg PO Q4H PRN Seizure Precautions [OM.PC] Routine Oth 01/02/18 12:48 Ordered Sequential Compression Device [OM.PC] Per Unit Routine Oth 01/02/18 12:49 Ordered Resuscitation Status Routine Resus Stat 01/02/18 12:48 Ordered Medication Orders Albuterol/Ipratropium (Duoneb 3.0-0.5 Mg/3 Ml) 3 ml NEB Q4H PRN PRN Reason: Shortness Of Breath/wheezing Clonidine HCl (Catapres) 0.1 mg PO Q4H PRN PRN Reason: Agitation Famotidine (Pepcid) 20 mg PO Q12H [facility] Folic Acid (Folic Acid) 1 mg PO DAILY [facility]EL[facility] Stop: 01/05/18 09:01 Haloperidol Lactate (Haldol) 2 mg IM Q4H PRN PRN Reason: Agitation Hydralazine HCl (Apresoline) 20 mg IVPUSH Q4H PRN PRN Reason: Hypertension Hydromorphone HCl (Dilaudid) 0.25 mg IVPUSH Q2H PRN PRN Reason: Pain (severe 7-10) Potassium Chloride 10 meq/ (Premix) 100 mls @ 100 mls/hr IV Q1H [facility]ELLE Stop: 01/02/18 14:14 Last Admin: 01/02/18 12:22 Dose: 100 mls/hr Infusion: 01/02/18 12:19 Dose: 100 mls/hr Admin: 01/02/18 11:19 Dose: 100 mls/hr Infusion: 01/02/18 11:19 Dose: 100 mls/hr Admin: 01/02/18 10:20 Dose: 100 mls/hr Lactated Ringer's (Ringers, Lactated) 1,000 mls @ 150 mls/hr IV STAT ONE Stop: 01/02/18 17:04 Last Admin: 01/02/18 10:20 Dose: 150 mls/hr Magnesium Sulfate 2 gm/ Premix 50 mls @ 25 mls/hr IV ONETIME ONE Stop: 01/02/18 14:09 Last Admin: 01/02/18 12:10 Dose: 25 mls/hr Promethazine HCl 12.5 mg/ (Sodium Chloride) 50.5 mls @ 100 mls/hr IV Q6H PRN PRN Reason: Nausea/Vomiting Thiamine HCl 200 mg/ Sodium (Chloride) 52 mls @ 100 mls/hr IV ONETIME ONE Stop: 01/02/18 13:18 Ibuprofen (Motrin) 400 mg PO Q6H PRN PRN Reason: Pain (mild 1-3) Lorazepam (Ativan) 2 mg IVPUSH Q4H PRN PRN Reason: Seizures Lorazepam (Ativan) 1 mg IV Q6H PRN PRN Reason: Anxiety Magnesium Sulfate (Pharmacy To Dose - Magnesium Replacement) 1 dose .XX ASDIRECTED [facility] Metoprolol Tartrate (Lopressor) 5 mg IVPUSH Q4H PRN PRN Reason: Tachycardia Metoprolol Tartrate (Lopressor) 50 mg PO Q12H [facility] Metoprolol Tartrate (Lopressor) 50 mg PO ONETIME ONE Stop: 01/02/18 12:55 Multivitamins (Thera) 1 each PO DAILY [facility] Stop: 01/06/18 09:01 Nicotine (Habitrol) 21 mg TRDERM DAILY PRN PRN Reason: Nicotine Dependence Ondansetron HCl (Zofran) 4 mg IV Q6H PRN PRN Reason: Nausea/Vomiting Oxycodone HCl (Oxycodone) 5 mg PO Q4H PRN PRN Reason: Pain (moderate 4-6) Pantoprazole Sodium (Protonix Iv) 40 mg IVPUSH ONETIME ONE Stop: 01/02/18 12:49 Potassium Chloride (Pharmacy To Dose - Potassium Replacement) 1 dose .XX ASDIRECTED [facility] Quetiapine Fumarate (Seroquel) 50 mg PO BEDTIME [facility] Thiamine HCl (Vitamin B-1) 100 mg PO DAILY [facility] Topiramate (Topamax) 25 mg PO BID [facility] Assessment/Plan Comment:: Assessment/Plan: Acute: SVT - Likely 2/2 Combined stimulant and electrolytes abnormality - Unresponsive to Cardizem and Adenosine Cardioversion - TSH is normal - Denies heavy caffeine intake - HR still in the 140s - Start Cardizem drip and titrate to keep HR < 100 - Metoprolol 25 mg po BID - PRN Lopressor for HR > 115 Possible Early Signs of ETOH Withdrawal - ANTHONY level 0.01 - Admits to being a heavy drinker for many years now - She drinks about 10 small bottles of Ratna daily - She wants help - Dr. 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
[2018-01-02] MEDS ORDERED: Metoprolol Tartrate 5 MG/5 ML SDV IVPUSH ONE (13:04)
[2018-01-02] MEDS ORDERED: Metoprolol Tartrate 5 MG/5 ML SDV ONE (13:04)
[2018-01-02] MEDS: Diltiazem 125 MG in Sodium Chloride 0.9% 100 ML IV SCH (14:19)
[2018-01-02] MEDS ORDERED: QUEtiapine 25 MG Tab PO ONE (14:19)
[2018-01-02] MEDS ORDERED: Topiramate 25 MG Tab PO STA (14:19)
[2018-01-02] MEDS ORDERED: chlordiazePOXIDE 25 MG Cap PO ONE (14:20)
[2018-01-02] MEDS: Sodium Chloride 0.9% 1,000 ML IV SCH ×2 (16:12→23:03)
[2018-01-02] MEDS: Metoprolol Tartrate 50 MG Tab PO SCH (20:34)
[2018-01-02] MEDS: Famotidine 20 MG Tab PO SCH (20:34)
[2018-01-02] MEDS: QUEtiapine 25 MG Tab PO SCH (20:35)
[2018-01-02] MEDS: Topiramate 25 MG Tab PO SCH (20:35)
[2018-01-03] MEDS: Diltiazem 125 MG in Sodium Chloride 0.9% 100 ML IV SCH (04:37)
[2018-01-03] MEDS: Sodium Chloride 0.9% 1,000 ML IV SCH (05:48)
--- NOTE | 2018-01-03 08:20 | CR ---
Chest: Portable view of the chest was obtained. Comparison: No prior chest x-ray. Heart size and mediastinum are normal. Lungs are clear. Bony structures are unremarkable. Impression: 1. Nothing acute is seen on two-view chest x-ray. Diagnostic code #1
--- NOTE | 2018-01-03 08:37 | PCM.PN ---
- General Info Date of Service: 01/03/18 Admission Dx/Problem (Free Text): SVT and Substance Abuse Subjective Update: Follow Up Functional Status: Reports: Pain Controlled, Tolerating Diet, Ambulating, Urinating, New Symptoms - Review of Systems General: Denies: Fever, Weakness, Fatigue, Malaise, Chills HEENT: Reports: No Symptoms Pulmonary: Denies: Shortness of Breath Cardiovascular: Denies: Chest Pain, Dyspnea on Exertion, Lightheadedness Gastrointestinal: Denies: Abdominal Pain, Nausea, Vomiting Genitourinary: Reports: No Symptoms Musculoskeletal: Reports: No Symptoms Skin: Reports: No Symptoms Neurological: Reports: Headache. Denies: Confusion, Dizziness, Pre-Existing Deficit, Seizure, Tremors, Difficulty Walking, Weakness, Change in Speech, Gait Disturbance Psychiatric: Denies: Confusion, Depression, Mood Lability, Anxiety, Agitation, Cravings, Hallucinations, Suicidal Ideation, Homicidal Ideation Systems Review Comment:: No overnight or acute issues. She slept pretty good. She is now off cardizem drip and her heart rates are well controlled. Her only complaint today is a mild headache. Her abnormal labs have significantly improved. Her liver U/S showed mild fatty infiltrate. - Patient Data Vitals - Most Recent: Last Vital Signs Temp 36.3 C 01/03/18 08:00 Pulse 85 01/03/18 08:00 Resp 16 01/03/18 08:00 BP 102/75 01/03/18 08:00 Pulse Ox 100 01/03/18 08:00 Weight - Most Recent: 92.125 kg I&O - Last 24 Hours: Intake & Output 01/02/18 01/03/18 01/03/18 22:59 06:59 14:59 Intake Total 3608 1905 Output Total 900 Balance 3608 1905 -900 Lab Results Last 24 Hours: Laboratory Results - last 24 hr 01/02/18 01/02/18 01/02/18 Range/Units 09:17 09:17 09:19 WBC (3.98-10.04) K/mm3 RBC (3.98-5.22) M/mm3 Hgb (11.2-15.7) gm/L Hct (34.1-44.9) % MCV (79.4-94.8) fl MCH (25.6-32.2) pg MCHC (32.2-35.5) g/dl RDW Std Deviation (36.4-46.3) fL Plt Count (182-369) K/mm3 MPV (9.4-12.3) fl Neut % (Auto) (34.0-71.1) % Lymph % (Auto) (19.3-51.7) % Grant % (Auto) (4.7-12.5) % Eos % (Auto) (0.7-5.8) Baso % (Auto) (0.1-1.2) % Neut # (Auto) (1.56-6.13) K/mm3 Lymph # (Auto) (1.18-3.74) K/mm3 Grant # (Auto) (0.24-0.36) K/mm3 Eos # (Auto) (0.04-0.36) K/mm3 Baso # (Auto) (0.01-0.08) K/mm3 Neutrophils % (Manual) (40-60) % Band Neutrophils % (0-10) % Lymphocytes % (Manual) (20-40) % Atypical Lymphs % % Monocytes % (Manual) (2-10) % Eosinophils % (Manual) (0.7-5.8) % Basophils % (Manual) (0.1-1.2) Platelet Estimate RBC Morph Comment Sodium 132 L (136-145) mEq/L Potassium 2.6 L (3.5-5.1) mEq/L Chloride 95 L (98-107) mEq/L Carbon Dioxide 20 L (21-32) mEq/L Anion Gap 19.6 H (5-15) BUN 6 L (7-18) mg/dL Creatinine 1.0 (0.55-1.02) mg/dL Est Cr Clr Drug Dosing TNP Estimated GFR (MDRD) > 60 (>60) mL/min BUN/Creatinine Ratio 6.0 L (14-18) Glucose 131 H (74-106) mg/dL Calcium 11.7 H (8.5-10.1) mg/dL Magnesium 1.4 L (1.8-2.4) mg/dl Total Bilirubin 1.2 H (0.2-1.0) mg/dL GGT 353 H (5-55) U/L AST 188 H (15-37) U/L ALT 163 H (14-59) U/L Alkaline Phosphatase 131 H (46-116) U/L Troponin I < 0.017 (0.00-0.056) ng/mL Total Protein 9.9 H (6.4-8.2) g/dl Albumin 3.4 (3.4-5.0) g/dl Globulin 6.5 gm/dL Albumin/Globulin Ratio 0.5 L (1-2) Triglycerides (<150) mg/dL Cholesterol (<200) mg/dL LDL Cholesterol Direct (<100) mg/dL HDL Cholesterol (40-59) mg/dL TSH 3rd Generation 2.136 (0.358-3.74) uIU/mL HCG, Quant < 1.0 mIU/mL Urine Color (Yellow) Urine Appearance (Clear) Urine pH (5.0-8.0) Ur Specific [place] (1.005-1.030) Urine Protein (Negative) Urine Glucose (UA) (Negative) Urine Ketones (Negative) Urine Occult Blood (Negative) Urine Nitrite (Negative) Urine Bilirubin (Negative) Urine Urobilinogen (0.2-1.0) Ur Leukocyte Esterase (Negative) Urine RBC (0-5) /hpf Urine WBC (0-5) /hpf Ur Epithelial Cells (0-5) /hpf Urine Bacteria (FEW) /hpf Urine Mucus (FEW) /hpf Urine Opiates Screen (NEGATIVE) Ur Buprenorphine Scrn (NEGATIVE) Ur Oxycodone Screen (NEGATIVE) Urine Methadone Screen (NEGATIVE) Ur Propoxyphene Screen (NEGATIVE) Ur Barbiturates Screen (NEGATIVE) Ur Tricyclics Screen (NEGATIVE) Ur Phencyclidine Scrn (NEGATIVE) Ur Amphetamine Screen (NEGATIVE) U Methamphetamines Scrn (NEGATIVE) U Benzodiazepines Scrn (NEGATIVE) U Cocaine Metab Screen (NEGATIVE) U Marijuana (THC) Screen (NEGATIVE) Ethyl Alcohol 0.01 (0.00) gm% 01/02/18 01/02/18 01/02/18 Range/Units 09:19 10:28 10:28 WBC 9.86 (3.98-10.04) K/mm3 RBC 5.01 (3.98-5.22) M/mm3 Hgb 13.8 (11.2-15.7) gm/L Hct 42.1 (34.1-44.9) % MCV 84.0 (79.4-94.8) fl MCH 27.5 (25.6-32.2) pg MCHC 32.8 (32.2-35.5) g/dl RDW Std Deviation 55.7 H (36.4-46.3) fL Plt Count 365 (182-369) K/mm3 MPV 9.4 (9.4-12.3) fl Neut % (Auto) (34.0-71.1) % Lymph % (Auto) (19.3-51.7) % [place] % (Auto) (4.7-12.5) % Eos % (Auto) (0.7-5.8) Baso % (Auto) (0.1-1.2) % Neut # (Auto) (1.56-6.13) K/mm3 Lymph # (Auto) (1.18-3.74) K/mm3 [place] # (Auto) (0.24-0.36) K/mm3 Eos # (Auto) (0.04-0.36) K/mm3 Baso # (Auto) (0.01-0.08) K/mm3 Neutrophils % (Manual) 73 H (40-60) % Band Neutrophils % 0 (0-10) % Lymphocytes % (Manual) 24 (20-40) % Atypical Lymphs % 0 % Monocytes % (Manual) 2 (2-10) % Eosinophils % (Manual) 1 (0.7-5.8) % Basophils % (Manual) 0 L (0.1-1.2) Platelet Estimate Adequate RBC Morph Comment Normal Sodium (136-145) mEq/L Potassium (3.5-5.1) mEq/L Chloride (98-107) mEq/L Carbon Dioxide (21-32) mEq/L Anion Gap (5-15) BUN (7-18) mg/dL Creatinine (0.55-1.02) mg/dL Est Cr Clr Drug Dosing Estimated GFR (MDRD) (>60) mL/min BUN/Creatinine Ratio (14-18) Glucose (74-106) mg/dL Calcium (8.5-10.1) mg/dL Magnesium (1.8-2.4) mg/dl Total Bilirubin (0.2-1.0) mg/dL GGT (5-55) U/L AST (15-37) U/L ALT (14-59) U/L Alkaline Phosphatase (46-116) U/L Troponin I (0.00-0.056) ng/mL Total Protein (6.4-8.2) g/dl Albumin (3.4-5.0) g/dl Globulin gm/dL Albumin/Globulin Ratio (1-2) Triglycerides (<150) mg/dL Cholesterol (<200) mg/dL LDL Cholesterol Direct (<100) mg/dL HDL Cholesterol (40-59) mg/dL TSH 3rd Generation (0.358-3.74) uIU/mL HCG, Quant mIU/mL Urine Color Yellow (Yellow) Urine Appearance Clear (Clear) Urine pH 7.0 (5.0-8.0) Ur Specific [place] 1.015 (1.005-1.030) Urine Protein Negative (Negative) Urine Glucose (UA) Negative (Negative) Urine Ketones Negative (Negative) Urine Occult Blood Negative (Negative) Urine Nitrite Negative (Negative) Urine Bilirubin Negative (Negative) Urine Urobilinogen 0.2 (0.2-1.0) Ur Leukocyte Esterase Trace H (Negative) Urine RBC 0-5 (0-5) /hpf Urine WBC 0-5 (0-5) /hpf Ur Epithelial Cells 0-5 (0-5) /hpf Urine Bacteria Few (FEW) /hpf Urine Mucus Few (FEW) /hpf Urine Opiates Screen Negative (NEGATIVE) Ur Buprenorphine Scrn Negative (NEGATIVE) Ur Oxycodone Screen Negative (NEGATIVE) Urine Methadone Screen Negative (NEGATIVE) Ur Propoxyphene Screen Negative (NEGATIVE) Ur Barbiturates Screen Negative (NEGATIVE) Ur Tricyclics Screen Negative (NEGATIVE) Ur Phencyclidine Scrn Negative (NEGATIVE) Ur Amphetamine Screen Presumptive positive H (NEGATIVE) U Methamphetamines Scrn Presumptive positive H (NEGATIVE) U Benzodiazepines Scrn Negative (NEGATIVE) U Cocaine Metab Screen Negative (NEGATIVE) U Marijuana (THC) Screen Negative (NEGATIVE) Ethyl Alcohol (0.00) gm% 01/03/18 01/03/18 Range/Units 06:00 06:00 WBC 5.33 (3.98-10.04) K/mm3 RBC 3.62 L (3.98-5.22) M/mm3 Hgb 10.2 L (11.2-15.7) gm/L Hct 32.4 L (34.1-44.9) % MCV 89.5 (79.4-94.8) fl MCH 28.2 (25.6-32.2) pg MCHC 31.5 L (32.2-35.5) g/dl RDW Std Deviation 59.1 H (36.4-46.3) fL Plt Count 227 (182-369) K/mm3 MPV 9.7 (9.4-12.3) fl Neut % (Auto) 64.5 (34.0-71.1) % Lymph % (Auto) 27.4 (19.3-51.7) % Grant % (Auto) 6.8 (4.7-12.5) % Eos % (Auto) 0.9 (0.7-5.8) Baso % (Auto) 0.2 (0.1-1.2) % Neut # (Auto) 3.44 (1.56-6.13) K/mm3 Lymph # (Auto) 1.46 (1.18-3.74) K/mm3 [place] # (Auto) 0.36 (0.24-0.36) K/mm3 Eos # (Auto) 0.05 (0.04-0.36) K/mm3 Baso # (Auto) 0.01 (0.01-0.08) K/mm3 Neutrophils % (Manual) (40-60) % Band Neutrophils % (0-10) % Lymphocytes % (Manual) (20-40) % Atypical Lymphs % % Monocytes % (Manual) (2-10) % Eosinophils % (Manual) (0.7-5.8) % Basophils % (Manual) (0.1-1.2) Platelet Estimate RBC Morph Comment Sodium 136 (136-145) mEq/L Potassium 3.7 (3.5-5.1) mEq/L Chloride 107 (98-107) mEq/L Carbon Dioxide 22 (21-32) mEq/L Anion Gap 10.7 (5-15) BUN 10 (7-18) mg/dL Creatinine 0.9 (0.55-1.02) mg/dL Est Cr Clr Drug Dosing 80.90 Estimated GFR (MDRD) > 60 (>60) mL/min BUN/Creatinine Ratio 11.1 L (14-18) Glucose 79 (74-106) mg/dL Calcium 7.4 L (8.5-10.1) mg/dL Magnesium 2.1 (1.8-2.4) mg/dl Total Bilirubin 1.0 (0.2-1.0) mg/dL GGT (5-55) U/L AST 249 H (15-37) U/L ALT 144 H (14-59) U/L Alkaline Phosphatase 92 (46-116) U/L Troponin I (0.00-0.056) ng/mL Total Protein 6.9 (6.4-8.2) g/dl Albumin 2.3 L (3.4-5.0) g/dl Globulin 4.6 gm/dL Albumin/Globulin Ratio 0.5 L (1-2) Triglycerides 65 (<150) mg/dL Cholesterol 124 (<200) mg/dL LDL Cholesterol Direct 67 (<100) mg/dL HDL Cholesterol 56.0 (40-59) mg/dL TSH 3rd Generation (0.358-3.74) uIU/mL HCG, Quant mIU/mL Urine Color (Yellow) Urine Appearance (Clear) Urine pH (5.0-8.0) Ur Specific [place] (1.005-1.030) Urine Protein (Negative) Urine Glucose (UA) (Negative) Urine Ketones (Negative) Urine Occult Blood (Negative) Urine Nitrite (Negative) Urine Bilirubin (Negative) Urine Urobilinogen (0.2-1.0) Ur Leukocyte Esterase (Negative) Urine RBC (0-5) /hpf Urine WBC (0-5) /hpf Ur Epithelial Cells (0-5) /hpf Urine Bacteria (FEW) /hpf Urine Mucus (FEW) /hpf Urine Opiates Screen (NEGATIVE) Ur Buprenorphine Scrn (NEGATIVE) Ur Oxycodone Screen (NEGATIVE) Urine Methadone Screen (NEGATIVE) Ur Propoxyphene Screen (NEGATIVE) Ur Barbiturates Screen (NEGATIVE) Ur Tricyclics Screen (NEGATIVE) Ur Phencyclidine Scrn (NEGATIVE) Ur Amphetamine Screen (NEGATIVE) U Methamphetamines Scrn (NEGATIVE) U Benzodiazepines Scrn (NEGATIVE) U Cocaine Metab Screen (NEGATIVE) U Marijuana (THC) Screen (NEGATIVE) Ethyl Alcohol (0.00) gm% Med Orders - Current: Current Medications Albuterol/Ipratropium (Duoneb 3.0-0.5 Mg/3 Ml) 3 ml NEB Q4H PRN PRN Reason: Shortness Of Breath/wheezing Clonidine HCl (Catapres) 0.1 mg PO Q4H PRN PRN Reason: Agitation Famotidine (Pepcid) 20 mg PO Q12H [facility] Last Admin: 01/02/18 20:34 Dose: 20 mg Folic Acid (Folic Acid) 1 mg PO DAILY [facility] Stop: 01/05/18 09:01 Haloperidol Lactate (Haldol) 2 mg IM Q4H PRN PRN Reason: Agitation Hydralazine HCl (Apresoline) 20 mg IVPUSH Q4H PRN PRN Reason: Hypertension Hydromorphone HCl (Dilaudid) 0.25 mg IVPUSH Q2H PRN PRN Reason: Pain (severe 7-10) Promethazine HCl 12.5 mg/ (Sodium Chloride) 50.5 mls @ 100 mls/hr IV Q6H PRN PRN Reason: Nausea/Vomiting Diltiazem HCl 125 mg/ Sodium (Chloride) 125 mls @ 5 mls/hr IV TITRATE [facility]; Protocol Last Admin: 01/03/18 04:37 Dose: 10 mg/hr, 10 mls/hr Sodium Chloride (Normal Saline) 1,000 mls @ 150 mls/hr IV ASDIRECTED [facility] Last Admin: 01/03/18 05:48 Dose: 150 mls/hr Ibuprofen (Motrin) 400 mg PO Q6H PRN PRN Reason: Pain (mild 1-3) Lorazepam (Ativan) 2 mg IVPUSH Q4H PRN PRN Reason: Seizures Lorazepam (Ativan) 1 mg IV Q6H PRN PRN Reason: Anxiety Lorazepam (Ativan) 0 mg IVPUSH Q4H PRN; Protocol PRN Reason: Withdrawal Symptoms Magnesium Sulfate (Pharmacy To Dose - Magnesium Replacement) 0 dose .XX ASDIRECTED PRN PRN Reason: RX TO WATCH MAG Metoprolol Tartrate (Lopressor) 5 mg IVPUSH Q4H PRN PRN Reason: Tachycardia Metoprolol Tartrate (Lopressor) 50 mg PO Q12H [facility] Last Admin: 01/02/18 20:34 Dose: 50 mg Multivitamins (Thera) 1 each PO DAILY [facility] Stop: 01/06/18 09:01 Nicotine (Habitrol) 21 mg TRDERM DAILY PRN PRN Reason: Nicotine Dependence Ondansetron HCl (Zofran) 4 mg IV Q6H PRN PRN Reason: Nausea/Vomiting Oxycodone HCl (Oxycodone) 5 mg PO Q4H PRN PRN Reason: Pain (moderate 4-6) Potassium Chloride (Pharmacy To Dose - Potassium Replacement) 0 dose .XX ASDIRECTED PRN PRN Reason: RX TO WATCH K Quetiapine Fumarate (Seroquel) 50 mg PO BEDTIME [facility] Last Admin: 01/02/18 20:35 Dose: 50 mg Thiamine HCl (Vitamin B-1) 100 mg PO DAILY [facility] Topiramate (Topamax) 25 mg PO BID [facility] Last Admin: 01/02/18 20:35 Dose: 25 mg Discontinued Medications Adenosine (Adenocard) Confirm Administered Dose 18 mg .ROUTE .STK-MED ONE Stop: 01/02/18 08:56 Last Admin: 01/02/18 09:15 Dose: Not Given Adenosine (Adenocard) Confirm Administered Dose 12 mg .ROUTE .STK-MED ONE Stop: 01/02/18 08:56 Last Admin: 01/02/18 09:15 Dose: Not Given Adenosine (Adenocard) 6 mg IVPUSH NOW ONE Stop: 01/02/18 08:56 Last Admin: 01/02/18 08:57 Dose: 6 mg Adenosine (Adenocard) 12 mg IVPUSH NOW ONE Stop: 01/02/18 09:01 Last Admin: 01/02/18 09:01 Dose: 12 mg Chlordiazepoxide HCl (Librium) 25 mg PO ONETIME ONE Stop: 01/02/18 14:21 Last Admin: 01/02/18 14:42 Dose: 25 mg Diltiazem HCl (Cardizem) Confirm Administered Dose 50 mg .ROUTE .STK-MED ONE Stop: 01/02/18 09:05 Last Admin: 01/02/18 09:15 Dose: Not Given Diltiazem HCl (Cardizem) 10 mg IVPUSH ONETIME ONE Stop: 01/02/18 09:06 Last Admin: 01/02/18 09:05 Dose: 10 mg Diltiazem HCl (Cardizem) 10 mg IVPUSH ONETIME ONE Stop: 01/02/18 09:26 Last Admin: 01/02/18 09:28 Dose: 10 mg Potassium Chloride 10 meq/ (Premix) 100 mls @ 100 mls/hr IV Q1H [facility] Stop: 01/02/18 14:14 Last Admin: 01/02/18 13:45 Dose: 100 mls/hr Potassium Chloride (Kcl 10 Meq In Water 100 Ml) Confirm Administered Dose 200 mls @ as directed .ROUTE .STK-MED ONE Stop: 01/02/18 10:17 Last Admin: 01/02/18 10:32 Dose: Not Given Lactated Ringer's (Ringers, Lactated) Confirm Administered Dose 1,000 mls @ as directed .ROUTE .STK-MED ONE Stop: 01/02/18 10:17 Last Admin: 01/02/18 10:44 Dose: Not Given Lactated Ringer's (Ringers, Lactated) 1,000 mls @ 150 mls/hr IV STAT ONE Stop: 01/02/18 17:04 Last Admin: 01/02/18 10:20 Dose: 150 mls/hr Sodium Chloride (Normal Saline) 1,000 mls @ 999 mls/hr IV ONETIME ONE Stop: 01/02/18 10:20 Last Admin: 01/02/18 09:20 Dose: 999 mls/hr Magnesium Sulfate 4 gm/ Premix 100 mls @ 25 mls/hr IV ONETIME ONE Stop: 01/02/18 11:59 Last Admin: 01/02/18 12:11 Dose: Not Given Magnesium Sulfate (Magnesium Sulfate 2 Gm In Water 50 Ml) Confirm Administered Dose 50 mls @ as directed .ROUTE .[facility] ONE Stop: 01/02/18 12:01 Last Admin: 01/02/18 12:05 Dose: Not Given Magnesium Sulfate 2 gm/ Premix 50 mls @ 25 mls/hr IV ONETIME ONE Stop: 01/02/18 14:09 Last Admin: 01/02/18 12:10 Dose: 25 mls/hr Thiamine HCl 200 mg/ Sodium (Chloride) 52 mls @ 100 mls/hr IV ONETIME ONE Stop: 01/02/18 14:31 Last Admin: 01/02/18 13:59 Dose: 100 mls/hr Magnesium Sulfate 2 gm/ Premix 50 mls @ 25 mls/hr IV ONETIME ONE Stop: 01/02/18 17:59 Last Admin: 01/02/18 16:07 Dose: 25 mls/hr Potassium Chloride 10 meq/ (Premix) 100 mls @ 100 mls/hr IV Q1H [facility] Stop: 01/02/18 18:59 Last Admin: 01/02/18 18:07 Dose: 100 mls/hr Lorazepam (Ativan) 1 mg IVPUSH ONETIME ONE Stop: 01/02/18 10:04 Last Admin: 01/02/18 10:08 Dose: 1 mg Metoclopramide HCl (Reglan) Confirm Administered Dose 10 mg .ROUTE .STK-MED ONE Stop: 01/02/18 09:17 Metoprolol Tartrate (Lopressor) 50 mg PO ONETIME ONE Stop: 01/02/18 12:55 Last Admin: 01/02/18 13:46 Dose: 50 mg Metoprolol Tartrate (Lopressor) 5 mg IVPUSH ONETIME ONE Stop: 01/02/18 13:05 Last Admin: 01/02/18 13:08 Dose: 5 mg Metoprolol Tartrate (Lopressor) Confirm Administered Dose 15 mg .ROUTE .STK-MED ONE Stop: 01/02/18 13:05 Last Admin: 01/02/18 13:17 Dose: Not Given Midazolam HCl (Versed 1 Mg/Ml) Confirm Administered Dose 4 mg .ROUTE .STK-MED ONE Stop: 01/02/18 09:15 Pantoprazole Sodium (Protonix Iv) 40 mg IVPUSH ONETIME ONE Stop: 01/02/18 12:49 Last Admin: 01/02/18 13:46 Dose: 40 mg Propofol (Diprivan 20 Ml) Confirm Administered Dose 200 mg .ROUTE .STK-MED ONE Stop: 01/02/18 09:16 Quetiapine Fumarate (Seroquel) 50 mg PO ONETIME ONE Stop: 01/02/18 14:20 Last Admin: 01/02/18 14:43 Dose: 50 mg Topiramate (Topamax) 25 mg PO NOW STA Stop: 01/02/18 14:20 Last Admin: 01/02/18 14:43 Dose: 25 mg - Exam General: Alert, Oriented, Cooperative, No Acute Distress HEENT: Pupils Equal, Pupils Reactive, EOMI, Mucous Membr. Moist/[place] Neck: Supple, Trachea Midline, No JVD Lungs: Clear to Auscultation, Normal Respiratory Effort, Rhonchi Cardiovascular: Regular Rate GI/Abdominal Exam: Normal Bowel Sounds, Soft, Non-Tender, No Organomegaly, No Distention, No Abnormal Bruit, No Mass (Female) Exam: Deferred Back Exam: Normal Inspection, Decreased Range of Motion Extremities: Normal Inspection, Normal Range of Motion, Non-Tender, No Pedal Edema, Normal Capillary Refill Peripheral Pulses: 2+: Dorsalis Pedis (L), Dorsalis Pedis (R) Skin: Warm, Dry, Intact Neurological: No New Focal Deficit Psy/Mental Status: Alert, Normal Affect, Normal Mood. No: Agitated, Suicidal Ideation, Hallucinations, Withdrawal Symptoms - Problem List Review Problem List Initiated/Reviewed/Updated: Yes - My Orders Last 24 Hours: My Active Orders 01/02/18 12:46 LORazepam [Ativan] 2 mg IVPUSH Q4H PRN Metoprolol Tartrate [Lopressor] 5 mg IVPUSH Q4H PRN Nicotine [Habitrol] 21 mg TRDERM DAILY PRN hydrALAZINE [Apresoline] 20 mg IVPUSH Q4H PRN 01/02/18 12:48 CIWAA Assessment [RC] Q4HR Cardiac Monitoring [RC] CONTINUOUS Height and Weight [RC] 04 Intake and Output [RC] 04,16 Notify Provider [RC] PRN Oxygen Therapy [RC] PRN Up With Assistance [RC] ASDIRECTED Up ad Serina [RC] ASDIRECTED VTE/DVT Education [RC] PER UNIT ROUTINE Vital Signs [RC] Q1HR Consult to Case Management/Motorman/Woman [CONS] Routine Consult to Physician [CONS] Routine Consult to Spiritual Care [CONS] Routine Albuterol/Ipratropium [DuoNeb 3.0-0.5 MG/3 ML] 3 ml NEB Q4H PRN HYDROmorphone [Dilaudid] 0.25 mg IVPUSH Q2H PRN Haloperidol Lactate [Haldol] 2 mg IM Q4H PRN Ibuprofen [Motrin] 400 mg PO Q6H PRN LORazepam [Ativan] 1 mg IV Q6H PRN Ondansetron [Zofran] 4 mg IV Q6H PRN Promethazine [Phenergan] 12.5 mg Sodium Chloride 0.9% [Normal Saline] 50 ml IV Q6H cloNIDine [Catapres] 0.1 mg PO Q4H PRN oxyCODONE 5 mg PO Q4H PRN Seizure Precautions [OM.PC] Routine Resuscitation Status Routine 01/02/18 12:49 Sequential Compression Device [OM.PC] Per Unit Routine 01/02/18 12:50 RT Aerosol Therapy [RC] ASDIRECTED 01/02/18 12:51 Notify Provider Consults [RC] ASDIRECTED 01/02/18 13:00 Magnesium Rep Pharmacy to Dose [Pharmacy to Dose - Magnesium Replacement] 0 dose .XX ASDIRECTED PRN Potassium Rep Pharmacy to Dose [Pharmacy to Dose - Potassium Replacement] 0 dose .XX ASDIRECTED PRN 01/02/18 13:45 Diltiazem 125 mg Sodium Chloride 0.9% [Normal Saline] 100 ml IV TITRATE 01/02/18 14:23 LORazepam [Ativan] See Protocol IVPUSH Q4H PRN 01/02/18 14:31 Consult for Substance Abuse [CONS] Routine 01/02/18 16:00 Sodium Chloride 0.9% [Normal Saline] 1,000 ml IV ASDIRECTED 01/02/18 19:57 SULMA Hose [Antiembolic Hose] [OM.PC] Routine 01/02/18 21:00 Famotidine [Pepcid] 20 mg PO Q12H Metoprolol Tartrate [Lopressor] 50 mg PO Q12H QUEtiapine [SEROquel] 50 mg PO BEDTIME Topiramate [Topamax] 25 mg PO BID 01/02/18 Lunch Regular Diet [DIET] 01/03/18 09:00 Folic Acid 1 mg PO DAILY Multivitamins,Therapeutic [Thera] 1 each PO DAILY Thiamine [Vitamin B-1] 100 mg PO DAILY 01/03/18 12:47 Abdomen Ltd [US] Stat 01/03/18 12:54 Echo Comp wo Cont [US] Stat 01/04/18 05:11 COMPREHENSIVE METABOLIC PN,CMP [CHEM] AM MAGNESIUM [CHEM] AM 01/05/18 05:11 COMPREHENSIVE METABOLIC PN,CMP [CHEM] AM MAGNESIUM [CHEM] AM 01/06/18 05:11 COMPREHENSIVE METABOLIC PN,CMP [CHEM] AM MAGNESIUM [CHEM] AM - Plan Plan:: Assessment/Plan: Acute: S/p SVT - Likely 2/2 Combined stimulant and electrolytes abnormality - Unresponsive to Cardizem and Adenosine Cardioversion - TSH is normal - Denies heavy caffeine intake - HR still in the 140s - Was on Cardizem drip and now discontinued - Metoprolol 25 mg po BID - PRN Lopressor for HR > 115 Early Signs of ETOH Withdrawal - ANTHONY level 0.01 - Admits to being a heavy drinker for many years now - She drinks about 10 small bottles of Ratna daily - She wants help - Dr. 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 - GGT is 353; AST of 188-->249 and ALT of 163--> 144 - Denies any hx/o IVDU or Blood Transfusion - Liver U/S shows mild fatty liver - Lipid panel wnl - Avoid acetaminophen for now Chronic: Depression - Untreated - Worsened when she was not able to bring back her children with her [place] the [place] after visiting [facility] Substance Abuse: Amphetamines/Meth and THC ETOH Use/Dependence Plan: She is clinically much better Transfer to [facility] Routine AM Labs SA consult for d/c planning DVT/GI PPx: SCDs and PPI/H2B Additional orders as above Code status: 1 Possible discharge in AM
[2018-01-03] MEDS: Famotidine 20 MG Tab PO SCH ×2 (10:24→20:35)
[2018-01-03] MEDS: Folic Acid 1 MG Tab PO SCH (10:25)
[2018-01-03] MEDS: Thiamine 100 MG Tab PO SCH (10:25)
[2018-01-03] MEDS: Topiramate 25 MG Tab PO SCH ×2 (10:26→20:36)
[2018-01-03] MEDS: Metoprolol Tartrate 50 MG Tab PO SCH ×2 (10:26→20:35)
[2018-01-03] MEDS: Multivitamins,Therapeutic Tab PO SCH (10:27)
--- NOTE | 2018-01-03 12:10 | US ---
Limited abdominal ultrasound: Multiple real-time images were obtained. Liver is slightly echogenic. No focal abnormality is appreciated. Gallbladder contains no shadowing gallstones. No biliary duct dilatation is seen. Common bile duct is not dilated. Right kidney shows no hydronephrosis or mass and has a length of 10.8 cm. Portal vein shows normal hepatopedal flow. Inferior vena cava is patent. Pancreas appears within normal limits. Impression: 1. Echogenic liver most likely representing mild fatty infiltration. 2. No additional abnormality is appreciated on right upper quadrant abdominal ultrasound. Diagnostic code #3
[2018-01-03] MEDS ORDERED: Acetaminophen/Butalbital/Caffeine 325-50-40 MG Tab PO PRN (18:19)
[2018-01-03] MEDS: QUEtiapine 25 MG Tab PO SCH (20:36)
[2018-01-04] MEDS: Famotidine 20 MG Tab PO SCH (08:01)
[2018-01-04] MEDS: Thiamine 100 MG Tab PO SCH (08:02)
[2018-01-04] MEDS: Folic Acid 1 MG Tab PO SCH (08:02)
[2018-01-04] MEDS: Metoprolol Tartrate 50 MG Tab PO SCH (08:03)
[2018-01-04] MEDS: Topiramate 25 MG Tab PO SCH (08:03)
[2018-01-04] MEDS: Multivitamins,Therapeutic Tab PO SCH (08:03)
[2018-01-04 08:04] VITALS: BP 115/89
--- NOTE | 2018-01-04 08:35 | PCM.DCSUM1 ---
Discharge Summary - Hospital Course Brief History: This is a 37 yo white female with past medical hx/o depression and chronic substance abuse who comes in for evaluation of chest discomfort associated with heart palpitations and shortness of breath that started several hours ago. She denies doing anything unusual. However she admits to using methamphetamine last night. She also drinks a pack (10) of small bottled alcira daily. Her last drink was this morning with 2 small of it. Patient carries no hx/o thyroid or cardiac problems. She reports no chemical rehab treatment in the past. She admits to drinking alcohol heavily for many years now. Her chronic alcohol use has now affecting her quality of life and she wants to get better. She states her drinking and depression had gotten worse since her took away her children from her when they all went to [facility] in [place]. Patient denies being suicidal or homicidal. She is not on any anti-depressant and is not seeing any specialist for her psychiatric illness. He initial work up in ED shows an unremarkable CBC. Her chemistry is significant for sodium of 132, potassium of 2.6, Cl of 95, CO2 of 20, AG of 19.6, BUN of 6, BS of 131, Ca2 + of 11.7, Mg of 1.4, Total bilirubin of 1.2, AST of 188, ALT of 163, GGT of 353 , Alk phos of 131, Total protein of 9.9. Her TSH and HcG are both wnl. Her UA is negative for UTI. Her UDS is pos for Methamphetamines and Amphetamines. Her ANTHONY level is 0.01. While in ED she was treated for SVT to include chemical cardioversion with adenosine. Unfortunately, she did not respond to initial treatment and therefore she is coming to us for further medical management. Patient is full code. Diagnosis: Stroke: No Modified [place] Scale: No Symptoms at All Modified [place] Scale Score: 0 - Discharge Data Discharge Date: 01/04/18 Discharge Disposition: Home, Self-Care 01 Condition: Good - Discharge Diagnosis/Problem(s) (1) Alcohol abuse SNOMED Code(s): 18179374 ICD Code: F10.10 - ALCOHOL ABUSE, UNCOMPLICATED Status: Acute (2) Transaminitis SNOMED Code(s): 096394539, 321059790 ICD Code: R74.0 - NONSPEC ELEV OF LEVELS OF TRANSAMNS & LACTIC ACID DEHYDRGNSE Status: Acute (3) Depression SNOMED Code(s): 60199378 ICD Code: F32.9 - MAJOR DEPRESSIVE DISORDER, SINGLE EPISODE, UNSPECIFIED Status: Acute Qualifiers: Depression Type: major depressive disorder Major depression recurrence: unspecified whether recurrent Active/Remission status: remission status unspecified Qualified Code(s): F32.9 - Major depressive disorder, single episode, unspecified (4) Alcoholism SNOMED Code(s): 3799731 ICD Code: F10.20 - ALCOHOL DEPENDENCE, UNCOMPLICATED Status: Chronic (5) Hypokalemia SNOMED Code(s): 13134364 ICD Code: E87.6 - HYPOKALEMIA Status: Resolved (6) Hypomagnesemia SNOMED Code(s): 427432816 ICD Code: E83.42 - HYPOMAGNESEMIA Status: Resolved (7) Methamphetamine abuse SNOMED Code(s): 810913436 ICD Code: F15.10 - OTHER STIMULANT ABUSE, UNCOMPLICATED Status: Chronic (8) Supraventricular tachycardia SNOMED Code(s): 1424038 ICD Code: I47.1 - SUPRAVENTRICULAR TACHYCARDIA Status: Resolved - Patient Summary/Data Consults: Consultations 01/02/18 12:48 Consult to Case Management/Tape Sewing Machine Operator [CONS] Routine Consult to Physician [CONS] Routine Consult to Spiritual Care [CONS] Routine 01/02/18 14:31 Consult for Substance Abuse [CONS] Routine - Patient Instructions Diet: Usual Diet as Tolerated Activity: As Tolerated Driving: May Drive Today Showering/Bathing: May Shower Notify Provider of: Fever, Increased Pain, Swelling and Redness, Nausea and/or Vomiting Other/Special Instructions: - Please take all new medications as directed. - Resume all home medications and routine home activities as tolerated. - Recommend avoiding if not cutting down on alcohol due to fatty liver. - If you experience mental health crisis, call your AA rep/oscar Valle or Janes1 and proceed to the nearest medical facility. - Call or follow up with your PCP for any questions or concerns after discharge. - Follow up with your PCP in 1-2 week(s) . - Come back or seek immediate care should your symptoms persist or get worse - Discharge Plan *PRESCRIPTION DRUG MONITORING PROGRAM REVIEWED*: No *COPY OF PRESCRIPTION DRUG MONITORING REPORT IN PATIENT LUZ ELENA: No Home Medications: Home Meds . [No Known Home Meds] 08/05/16 [History] Patient Handouts: Steps to Quit Smoking - Discharge Summary/Plan Comment DC Time >30 min.: Yes (45 mins) Discharge Summary/Plan Comment: Discharge to Home Offered practical counseling on smoking cigarettes. She was counseled about the dangers of smoking and associated health risks. At this time she is not ready to quit but receptive to the idea of smoking cessation. Patient was provided reading materials or brochures to help when to quit smoking. She was advised to set a specific date, call the Quit line and follow up with her PCP when ready to quit. - General Info Date of Service: 01/04/18 Admission Dx/Problem (Free Text: SVT and Substance Abuse Subjective Update: Follow Up Functional Status: Reports: Pain Controlled, Tolerating Diet, Ambulating, Urinating - Review of Systems General: Denies: Fever, Weakness, Fatigue, Malaise, Chills HEENT: Reports: No Symptoms Pulmonary: Denies: Shortness of Breath, Pleuritic Chest Pain Cardiovascular: Denies: Chest Pain, Dyspnea on Exertion, Lightheadedness Gastrointestinal: Denies: Abdominal Pain, Decreased Appetite, Nausea, Vomiting Genitourinary: Reports: No Symptoms Musculoskeletal: Reports: No Symptoms Skin: Reports: Bruising. Denies: Cyanosis, Mottled, Pallor, Diaphoresis, Pruritis Neurological: Denies: Confusion, Dizziness, Seizure, Tremors, Difficulty Walking , Weakness, Gait Disturbance Psychiatric: Denies: Depression, Anxiety, Agitation, Cravings, Hallucinations, Suicidal Ideation Systems Review Comment: No overnight or acute issues. She rested well last night. She feels good and has no complaints. Her liver enzymes continues to improve. - Patient Data Vitals - Most Recent: Last Vital Signs Temp 36.2 C 01/04/18 08:05 Pulse 95 01/04/18 08:05 Resp 14 01/04/18 08:05 BP 115/89 01/04/18 08:05 Pulse Ox 100 01/04/18 08:05 Weight - Most Recent: 92.578 kg I&O - Last 24 hours: Intake & Output 01/03/18 01/04/18 01/04/18 22:59 06:59 14:59 Intake Total 2220 400 Output Total 600 Balance 1620 400 Lab Results - Last 24 hrs: Laboratory Results - last 24 hr 10/05/18 Range/Units 04:55 Sodium 135 L (136-145) mEq/L Potassium 3.5 (3.5-5.1) mEq/L Chloride 105 (98-107) mEq/L Carbon Dioxide 18 L (21-32) mEq/L Anion Gap 15.5 H (5-15) BUN 11 (7-18) mg/dL Creatinine 0.8 (0.55-1.02) mg/dL Est Cr Clr Drug Dosing 91.01 mL/min Estimated GFR (MDRD) > 60 (>60) mL/min BUN/Creatinine Ratio 13.8 L (14-18) Glucose 89 (74-106) mg/dL Calcium 8.0 L (8.5-10.1) mg/dL Magnesium 2.1 (1.8-2.4) mg/dl Total Bilirubin 0.6 (0.2-1.0) mg/dL AST 285 H (15-37) U/L ALT 196 H (14-59) U/L Alkaline Phosphatase 112 (46-116) U/L Total Protein 7.6 (6.4-8.2) g/dl Albumin 2.6 L (3.4-5.0) g/dl Globulin 5.0 gm/dL Albumin/Globulin Ratio 0.5 L (1-2) Med Orders - Current: Current Medications Acetaminophen/Butalbital/Caffeine (Fioricet 325-50-40 Mg) 1 tab PO Q6H PRN PRN Reason: Headache Albuterol/Ipratropium (Duoneb 3.0-0.5 Mg/3 Ml) 3 ml NEB Q4H PRN PRN Reason: Shortness Of Breath/wheezing Clonidine HCl (Catapres) 0.1 mg PO Q4H PRN PRN Reason: Agitation Famotidine (Pepcid) 20 mg PO Q12H [facility] Last Admin: 01/04/18 08:01 Dose: 20 mg Folic Acid (Folic Acid) 1 mg PO DAILY [facility] Stop: 01/05/18 09:01 Last Admin: 01/04/18 08:02 Dose: 1 mg Haloperidol Lactate (Haldol) 2 mg IM Q4H PRN PRN Reason: Agitation Hydralazine HCl (Apresoline) 20 mg IVPUSH Q4H PRN PRN Reason: Hypertension Hydromorphone HCl (Dilaudid) 0.25 mg IVPUSH Q2H PRN PRN Reason: Pain (severe 7-10) Promethazine HCl 12.5 mg/ (Sodium Chloride) 50.5 mls @ 100 mls/hr IV Q6H PRN PRN Reason: Nausea/Vomiting Diltiazem HCl 125 mg/ Sodium (Chloride) 125 mls @ 5 mls/hr IV TITRATE [facility]LE; Protocol Last Titration: 01/03/18 12:02 Dose: 0 mg/hr, 0 mls/hr Ibuprofen (Motrin) 400 mg PO Q6H PRN PRN Reason: Pain (mild 1-3) Lorazepam (Ativan) 2 mg IVPUSH Q4H PRN PRN Reason: Seizures Lorazepam (Ativan) 1 mg IV Q6H PRN PRN Reason: Anxiety Lorazepam (Ativan) 0 mg IVPUSH Q4H PRN; Protocol PRN Reason: Withdrawal Symptoms Magnesium Sulfate (Pharmacy To Dose - Magnesium Replacement) 0 dose .XX ASDIRECTED PRN PRN Reason: RX TO WATCH MAG Metoprolol Tartrate (Lopressor) 5 mg IVPUSH Q4H PRN PRN Reason: Tachycardia Metoprolol Tartrate (Lopressor) 50 mg PO Q12H [facility] Last Admin: 01/04/18 08:03 Dose: 50 mg Multivitamins (Thera) 1 each PO DAILY [facility] Stop: 01/06/18 09:01 Last Admin: 01/04/18 08:03 Dose: 1 each Nicotine (Habitrol) 21 mg TRDERM DAILY PRN PRN Reason: Nicotine Dependence Ondansetron HCl (Zofran) 4 mg IV Q6H PRN PRN Reason: Nausea/Vomiting Oxycodone HCl (Oxycodone) 5 mg PO Q4H PRN PRN Reason: Pain (moderate 4-6) Potassium Chloride (Pharmacy To Dose - Potassium Replacement) 0 dose .XX ASDIRECTED PRN PRN Reason: RX TO WATCH K Quetiapine Fumarate (Seroquel) 50 mg PO BEDTIME [facility] Last Admin: 01/03/18 20:36 Dose: 50 mg Thiamine HCl (Vitamin B-1) 100 mg PO DAILY [facility] Last Admin: 01/04/18 08:02 Dose: 100 mg Topiramate (Topamax) 25 mg PO BID [facility] Last Admin: 01/04/18 08:03 Dose: 25 mg Discontinued Medications Adenosine (Adenocard) Confirm Administered Dose 18 mg .ROUTE .STK-MED ONE Stop: 01/02/18 08:56 Last Admin: 01/02/18 09:15 Dose: Not Given Adenosine (Adenocard) Confirm Administered Dose 12 mg .ROUTE .STK-MED ONE Stop: 01/02/18 08:56 Last Admin: 01/02/18 09:15 Dose: Not Given Adenosine (Adenocard) 6 mg IVPUSH NOW ONE Stop: 01/02/18 08:56 Last Admin: 01/02/18 08:57 Dose: 6 mg Adenosine (Adenocard) 12 mg IVPUSH NOW ONE Stop: 01/02/18 09:01 Last Admin: 01/02/18 09:01 Dose: 12 mg Chlordiazepoxide HCl (Librium) 25 mg PO ONETIME ONE Stop: 01/02/18 14:21 Last Admin: 01/02/18 14:42 Dose: 25 mg Diltiazem HCl (Cardizem) Confirm Administered Dose 50 mg .ROUTE .STK-MED ONE Stop: 01/02/18 09:05 Last Admin: 01/02/18 09:15 Dose: Not Given Diltiazem HCl (Cardizem) 10 mg IVPUSH ONETIME ONE Stop: 01/02/18 09:06 Last Admin: 01/02/18 09:05 Dose: 10 mg Diltiazem HCl (Cardizem) 10 mg IVPUSH ONETIME ONE Stop: 01/02/18 09:26 Last Admin: 01/02/18 09:28 Dose: 10 mg Potassium Chloride 10 meq/ (Premix) 100 mls @ 100 mls/hr IV Q1H [facility] Stop: 01/02/18 14:14 Last Admin: 01/02/18 13:45 Dose: 100 mls/hr Potassium Chloride (Kcl 10 Meq In Water 100 Ml) Confirm Administered Dose 200 mls @ as directed .ROUTE .STK-MED ONE Stop: 01/02/18 10:17 Last Admin: 01/02/18 10:32 Dose: Not Given Lactated Ringer's (Ringers, Lactated) Confirm Administered Dose 1,000 mls @ as directed .ROUTE .STK-MED ONE Stop: 01/02/18 10:17 Last Admin: 01/02/18 10:44 Dose: Not Given Lactated Ringer's (Ringers, Lactated) 1,000 mls @ 150 mls/hr IV STAT ONE Stop: 01/02/18 17:04 Last Admin: 01/02/18 10:20 Dose: 150 mls/hr Sodium Chloride (Normal Saline) 1,000 mls @ 999 mls/hr IV ONETIME ONE Stop: 01/02/18 10:20 Last Admin: 01/02/18 09:20 Dose: 999 mls/hr Magnesium Sulfate 4 gm/ Premix 100 mls @ 25 mls/hr IV ONETIME ONE Stop: 01/02/18 11:59 Last Admin: 01/02/18 12:11 Dose: Not Given Magnesium Sulfate (Magnesium Sulfate 2 Gm In Water 50 Ml) Confirm Administered Dose 50 mls @ as directed .ROUTE .STK-MED ONE Stop: 01/02/18 12:01 Last Admin: 01/02/18 12:05 Dose: Not Given Magnesium Sulfate 2 gm/ Premix 50 mls @ 25 mls/hr IV ONETIME ONE Stop: 01/02/18 14:09 Last Admin: 01/02/18 12:10 Dose: 25 mls/hr Thiamine HCl 200 mg/ Sodium (Chloride) 52 mls @ 100 mls/hr IV ONETIME ONE Stop: 01/02/18 14:31 Last Admin: 01/02/18 13:59 Dose: 100 mls/hr Magnesium Sulfate 2 gm/ Premix 50 mls @ 25 mls/hr IV ONETIME ONE Stop: 01/02/18 17:59 Last Admin: 01/02/18 16:07 Dose: 25 mls/hr Potassium Chloride 10 meq/ (Premix) 100 mls @ 100 mls/hr IV Q1H [facility] Stop: 01/02/18 18:59 Last Admin: 01/02/18 18:07 Dose: 100 mls/hr Sodium Chloride (Normal Saline) 1,000 mls @ 150 mls/hr IV ASDIRECTED [facility] Last Admin: 01/03/18 05:48 Dose: 150 mls/hr Lorazepam (Ativan) 1 mg IVPUSH ONETIME ONE Stop: 01/02/18 10:04 Last Admin: 01/02/18 10:08 Dose: 1 mg Metoclopramide HCl (Reglan) Confirm Administered Dose 10 mg .ROUTE .STK-MED ONE Stop: 01/02/18 09:17 Metoprolol Tartrate (Lopressor) 50 mg PO ONETIME ONE Stop: 01/02/18 12:55 Last Admin: 01/02/18 13:46 Dose: 50 mg Metoprolol Tartrate (Lopressor) 5 mg IVPUSH ONETIME ONE Stop: 01/02/18 13:05 Last Admin: 01/02/18 13:08 Dose: 5 mg Metoprolol Tartrate (Lopressor) Confirm Administered Dose 15 mg .ROUTE .STK-MED ONE Stop: 01/02/18 13:05 Last Admin: 01/02/18 13:17 Dose: Not Given Midazolam HCl (Versed 1 Mg/Ml) Confirm Administered Dose 4 mg .ROUTE .STK-MED ONE Stop: 01/02/18 09:15 Pantoprazole Sodium (Protonix Iv) 40 mg IVPUSH ONETIME ONE Stop: 01/02/18 12:49 Last Admin: 01/02/18 13:46 Dose: 40 mg Propofol (Diprivan 20 Ml) Confirm Administered Dose 200 mg .ROUTE .STK-MED ONE Stop: 01/02/18 09:16 Quetiapine Fumarate (Seroquel) 50 mg PO ONETIME ONE Stop: 01/02/18 14:20 Last Admin: 01/02/18 14:43 Dose: 50 mg Topiramate (Topamax) 25 mg PO NOW STA Stop: 01/02/18 14:20 Last Admin: 01/02/18 14:43 Dose: 25 mg - Exam General: Reports: Alert, Oriented, Cooperative, No Acute Distress HEENT: Reports: Pupils Equal, Pupils Reactive, EOMI, Mucous Membr. Moist/[place] Neck: Reports: Supple, Trachea Midline, No Thyromegaly. Denies: Lymphadenopathy Lungs: Reports: Clear to Auscultation, Normal Respiratory Effort Cardiovascular: Reports: Regular Rate, Regular Rhythm GI/Abdominal Exam: Normal Bowel Sounds, Soft, Non-Tender, No Organomegaly, No Distention, No Abnormal Bruit, No Mass (Female) Exam: Deferred Rectal (Female) Exam: Deferred Back Exam: Reports: Normal Inspection, Full Range of Motion Extremities: Normal Inspection, Normal Range of Motion, Non-Tender, No Pedal Edema, Normal Capillary Refill Skin: Reports: Warm, Dry, Intact, Ecchymosis Neurological: Reports: No New Focal Deficit, Normal Gait Psy/Mental Status: Reports: Alert, Normal Affect, Normal Mood
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
== END 2018-01-04 12:42 | disposition home or self-care (01) | DRG 309 ==
LOC: JD.ED 08:32 → JD.ICU 13:23
PROVIDERS: ADMIT Internal Medicine; ATTEND Internal Medicine
PROC: 5A2204Z Restoration of Cardiac Rhythm, Single (ICD-10-PCS; principal; 2018-01-02)
DX: I47.1 Supraventricular tachycardia (principal); F10.239 Alcohol dependence with withdrawal, unspecified; F32.9 Major depressive disorder, single episode, unspecified; F15.10 Other stimulant abuse, uncomplicated; E87.6 Hypokalemia; E83.42 Hypomagnesemia; F17.210 Nicotine dependence, cigarettes, uncomplicated; F12.10 Cannabis abuse, uncomplicated; K70.10 Alcoholic hepatitis without ascites; F41.9 Anxiety disorder, unspecified; Z98.891 History of uterine scar from previous surgery
CPT/HCPCS: 36415; 71045; 71045-26; 76705; 76705-26; 80053; 80061; 80306; 81001; 82977; 83735; 84443; 84484; 84702; 85007; 85025; 85027; 92960; 93005; 93010; 93306; 96361; 96365; 96366; 96368; 96375; 99285-25; 99291; A9270-GY; C9113; G0480; J0153; J2060; J2250; J2704; J2765; J3411; J3475; J3480; J3490; J7030; J7040; J7050; J7120

== ENCOUNTER 2020-12-16 15:35 | Emergency (ER) | payer MEDICAID ==
[2020-12-16 15:41] VITALS: BP 150/101; PULSE 107
[2020-12-16] MEDS ORDERED: Sodium Chloride 0.9% 1,000 ML IV STA (16:39)
[2020-12-16] MEDS ORDERED: LORazepam 2 MG/ML SDV IVPUSH ONE (16:44)
[2020-12-16] MEDS: Sodium Chloride 0.9% 10 ML Syringe FLUSH PRN ×2 (16:57→19:01)
--- NOTE | 2020-12-16 16:58 | EDM.PDOC ---
ED HPI GENERAL MEDICAL PROBLEM - General Chief Complaint: Chest Pain Stated Complaint: [facility] Time Seen by Provider: 12/16/20 16:33 Source of Information: Reports: Patient, RN Notes Reviewed History Limitations: Reports: No Limitations - History of Present Illness INITIAL COMMENTS - FREE TEXT/NARRATIVE: Patient is a 40-year-old female presenting to the emergency department for evaluation after experiencing episode of chest pain and lightheadedness. Patient reports that she was at her counselor's office when she began to experience intense left-sided chest pain and felt lightheaded. She also felt like her heart was racing. She reports a history of SVT back in 2018 and states that it felt similar to this. She reports that she is a chronic alcoholic. Drinks up to a pint of hard liquor per day. Last drink was last evening. She had vomiting last evening as well. She feels that her symptoms may have been related to withdrawal. Denies any chest pain at this time. She has gone through [facility] with [facility] in [facility] past. She is wondering if treatment with tapering Ativan would help her to stop drinking without significant withdrawal symptoms. Denies any history of seizure with withdrawals. She is open to visiting with [facility]. Chest Pain Score (Numeric/FACES): 3 - Related Data Allergies Allergy/AdvReac Type Severity Reaction Status Date / Time No Known Allergies Allergy Verified 12/16/20 15:40 Home Meds: Home Meds LORazepam [Ativan] 1 mg PO ASDIRECTED #18 tab 12/16/20 [Rx] Past Medical History - Past Health History Medical/Surgical History: Denies Medical/Surgical History Other HEENT History: states is suppose to wear eyeglasses, has not been to routine eye doctor. Cardiovascular History: Reports: Other (See Below) Respiratory History: Reports: Other (See Below) Other Respiratory History: "hayfever" in childhood. Gastrointestinal History: Reports: None HAND TACKER History: Reports: Neurological History: Reports: Head Trauma Psychiatric History: Reports: Addiction, Depression, Suicide Attempt, Suicidal Ideation - Infectious Disease History Infectious Disease History: Reports: Chicken Pox, Hepatitis C, Other (See Below) Other Infectious Disease History: malaria - Past Surgical History HEENT Surgical History: Reports: None Female Surgical History: Reports: Section Neurological Surgical History: Reports: None Dermatological Surgical History: Reports: None - History Comment History Comment: Snorted a line of meth last evening-her second time- occasional marijuana use- Pt complained of chest pain and shortness of breath this am at 5. Thought alcira would help- had 3 drinks. Also ate orange at 6 am. In Er and needing cardioversion after other attempts failed. Alert and oriented. Discussed possibly being partly awake for cardioversion because of full stomach. Agrees. Social & Family History - Tobacco Use Tobacco Use Status *Q: Never Tobacco User Second Hand Smoke Exposure: No - Caffeine Use Caffeine Use: Reports: Coffee, Tea - Recreational Drug Use Recreational Drug Use: No ED ROS GENERAL - Review of Systems Review Of Systems: See Below Constitutional: Reports: No Symptoms HEENT: Reports: No Symptoms Respiratory: Reports: No Symptoms Cardiovascular: Reports: Chest Pain, Lightheadedness, Palpitations Endocrine: Reports: No Symptoms GI/Abdominal: Reports: No Symptoms : Reports: No Symptoms Musculoskeletal: Reports: No Symptoms Skin: Reports: No Symptoms Neurological: Reports: No Symptoms Psychiatric: Reports: No Symptoms Hematologic/Lymphatic: Reports: No Symptoms Immunologic: Reports: No Symptoms ED EXAM, GENERAL - Physical Exam Exam: See Below Exam Limited By: No Limitations General Appearance: Alert, WD/WN, No Apparent Distress Respiratory/Chest: No Respiratory Distress, Lungs Clear, Normal Breath Sounds, No Accessory Muscle Use, Chest Non-Tender Cardiovascular: Normal Peripheral Pulses, Regular Rate, Rhythm, No Edema, No Gallop, No JVD, No Murmur, No Rub GI/Abdominal: Normal Bowel Sounds, Soft, Non-Tender, No Organomegaly, No Distention, No Abnormal Bruit, No Mass Neurological: Alert, Oriented, CN II-XII Intact, Normal Cognition, Normal Gait, Normal Reflexes, No Motor/Sensory Deficits Psychiatric: Normal Affect, Normal Mood Skin Exam: Warm, Dry, Intact, Normal Color, No Rash #1 Interpretation EKG Date: 12/16/20 Time: 16:45 Rhythm: NSR Rate (Beats/Min): 115 [place]: LAD-Left [place] Deviation P-Wave: Present QRS: Normal ST-T: Normal QT: Prolonged Course - Vital Signs Last Recorded V/S: Last Vital Signs Temp 98.6 F 12/16/20 15:37 Pulse 107 H 12/16/20 15:37 Resp 20 12/16/20 15:37 BP 150/101 H 12/16/20 15:37 Pulse Ox 99 12/16/20 15:37 - Orders/Labs/Meds Orders: Active Orders 24 hr Category Date Time Status Peripheral IV Care [RC] . DIRECTED Care 12/16/20 16:34 Active Sodium Chloride 0.9% [Normal Saline] 100 ml Med 12/16/20 19:00 Active IV ASDIRECTED Sodium Chloride 0.9% [Saline Flush] Med 12/16/20 16:34 Active 10 ml FLUSH ASDIRECTED PRN Peripheral IV Insertion Adult [OM.PC] Stat Oth 12/16/20 16:34 Ordered Medication Orders Sodium Chloride (Normal Saline) 100 mls @ 60 mls/min IV ASDIRECTED CHRISTELLE Last Admin: 12/16/20 19:02 Dose: 60 mls/min Documented by: THO Sodium Chloride (Sodium Chloride 0.9% 10 Ml Syringe) 10 ml FLUSH ASDIRECTED PRN PRN Reason: Keep Vein Open Last Admin: 12/16/20 19:01 Dose: 10 ml Documented by: Admin: 12/16/20 16:57 Dose: 10 ml Documented by: UGO Labs: Laboratory Tests 12/16/20 12/16/20 12/16/20 Range/Units 16:53 16:53 16:53 WBC 5.88 (3.98-10.04) K/mm3 RBC 3.69 L (3.98-5.22) M/mm3 Hgb 12.9 D (11.2-15.7) gm/dl Hct 38.0 (34.1-44.9) % MCV 103.0 H D (79.4-94.8) fl MCH 35.0 H (25.6-32.2) pg MCHC 33.9 (32.2-35.5) g/dl RDW Std Deviation 67.2 H (36.4-46.3) fL Plt Count 197 (182-369) K/mm3 MPV 10.1 (9.4-12.3) fl Neut % (Auto) 81.7 H (34.0-71.1) % Lymph % (Auto) 10.0 L (19.3-51.7) % [place] % (Auto) 7.3 (4.7-12.5) % Eos % (Auto) 0.5 L (0.7-5.8) Baso % (Auto) 0.3 (0.1-1.2) % Neut # (Auto) 4.80 (1.56-6.13) K/mm3 Lymph # (Auto) 0.59 L (1.18-3.74) K/mm3 [place] # (Auto) 0.43 H (0.24-0.36) K/mm3 Eos # (Auto) 0.03 L (0.04-0.36) K/mm3 Baso # (Auto) 0.02 (0.01-0.08) K/mm3 D-Dimer, Quantitative 2.14 H (0.19-0.50) mg/L Sodium 132 L (136-145) mEq/L Potassium 4.0 (3.5-5.1) mEq/L Chloride 97 L (98-107) mEq/L Carbon Dioxide 25 (21-32) mEq/L Anion Gap 14.0 (5-15) BUN 4 L (7-18) mg/dL Creatinine 0.8 (0.55-1.02) mg/dL Est Cr Clr Drug Dosing 88.38 mL/min Estimated GFR (MDRD) > 60 (>60) mL/min BUN/Creatinine Ratio 5.0 L (14-18) Glucose 120 H (70-99) mg/dL Calcium 8.7 (8.5-10.1) mg/dL Magnesium 1.7 L (1.8-2.4) mg/dL Total Bilirubin 1.6 H (0.2-1.0) mg/dL AST 281 H (15-37) U/L ALT 149 H (14-59) U/L Alkaline Phosphatase 119 H (46-116) U/L Troponin I < 0.017 (0.00-0.056) ng/mL C-Reactive Protein 2.6 H* (<1.0) mg/dL Total Protein 8.7 H (6.4-8.2) g/dl Albumin 3.0 L (3.4-5.0) g/dl Globulin 5.7 gm/dL Albumin/Globulin Ratio 0.5 L (1-2) Ethyl Alcohol (0.00) gm% SARS-CoV-2 RNA (MARILOU) (NEGATIVE) 09/16/21 09/16/21 Range/Units 16:53 17:08 WBC (3.98-10.04) K/mm3 RBC (3.98-5.22) M/mm3 Hgb (11.2-15.7) gm/dl Hct (34.1-44.9) % MCV (79.4-94.8) fl MCH (25.6-32.2) pg MCHC (32.2-35.5) g/dl RDW Std Deviation (36.4-46.3) fL Plt Count (182-369) K/mm3 MPV (9.4-12.3) fl Neut % (Auto) (34.0-71.1) % Lymph % (Auto) (19.3-51.7) % [place] % (Auto) (4.7-12.5) % Eos % (Auto) (0.7-5.8) Baso % (Auto) (0.1-1.2) % Neut # (Auto) (1.56-6.13) K/mm3 Lymph # (Auto) (1.18-3.74) K/mm3 [place] # (Auto) (0.24-0.36) K/mm3 Eos # (Auto) (0.04-0.36) K/mm3 Baso # (Auto) (0.01-0.08) K/mm3 D-Dimer, Quantitative (0.19-0.50) mg/L Sodium (136-145) mEq/L Potassium (3.5-5.1) mEq/L Chloride (98-107) mEq/L Carbon Dioxide (21-32) mEq/L Anion Gap (5-15) BUN (7-18) mg/dL Creatinine (0.55-1.02) mg/dL Est Cr Clr Drug Dosing mL/min Estimated GFR (MDRD) (>60) mL/min BUN/Creatinine Ratio (14-18) Glucose (70-99) mg/dL Calcium (8.5-10.1) mg/dL Magnesium (1.8-2.4) mg/dL Total Bilirubin (0.2-1.0) mg/dL AST (15-37) U/L ALT (14-59) U/L Alkaline Phosphatase (46-116) U/L Troponin I (0.00-0.056) ng/mL C-Reactive Protein (<1.0) mg/dL Total Protein (6.4-8.2) g/dl Albumin (3.4-5.0) g/dl Globulin gm/dL Albumin/Globulin Ratio (1-2) Ethyl Alcohol 0.00 (0.00) gm% SARS-CoV-2 RNA (MARLIOU) Negative (NEGATIVE) Meds: Medications Generic Name Dose Route Start Last Admin Trade Name Freq PRN Reason Stop Dose Admin Sodium Chloride 100 mls @ 60 mls/min 12/16/20 19:00 12/16/20 19:02 Normal Saline IV 60 mls/min ASDIRECTED CHRISTELLE Administration Sodium Chloride 10 ml 12/16/20 16:34 12/16/20 19:01 Sodium Chloride 0.9% 10 Ml Syringe FLUSH 10 ml ASDIRECTED PRN Administration Keep Vein Open Discontinued Medications Generic Name Dose Route Start Last Admin Trade Name Freq PRN Reason Stop Dose Admin Sodium Chloride 1,000 mls @ 999 mls/hr 12/16/20 16:39 12/16/20 16:57 Normal Saline IV 12/16/20 17:39 999 mls/hr NOW STA Administration Iopamidol 100 ml 12/16/20 19:00 12/16/20 19:01 Iopamidol 755 Mg/Ml 100 Ml Bottle IVPUSH 12/16/20 19:01 100 ml ONETIME ONE Administration Lorazepam 0.5 mg 12/16/20 16:44 12/16/20 16:57 Lorazepam 2 Mg/Ml Sdv IVPUSH 12/16/20 16:45 0.5 mg ONETIME ONE Administration Sodium Chloride 10 ml 12/16/20 19:00 12/16/20 19:09 Sodium Chloride 0.9% 10 Ml Sdv FLUSH 12/16/20 19:01 10 ml ONETIME ONE Administration - Re-Assessments/Exams Free Text/Narrative Re-Assessment/Exam: Patient is a 40-year-old female presenting to the emergency department for evaluation after experiencing an episode of intense left-sided chest pain and dizziness. Symptoms have resolved at this time. She reports that she is a chronic alcoholic drinking up to a pint of liquor per day. Last drink was last evening. She feels her symptoms today may be related to alcohol withdrawal. She is requesting medications to help her stop drinking. Counselor talk to her about tapering Ativan for treatment. She is open to working with [facility] and possible going to the residential crisis center if they have a bed available. I have ordered blood work, chest x-ray, EKG. We will give her 1 L bolus of normal saline, and Ativan 0.5 mg IV. We will call [facility] and see if they can send up a tunnel miner to evaluate her for the residential crisis center. 12/16/20 1655 Hematology significant for D-dimer elevated 2.14, sodium 132, chloride 97, magnesium 1.7, total bili 1.6, AST 281, ALT 149, CRP 2.6. Blood alcohol is 0. Covid is negative. I have ordered CT angiogram of the chest. Patient continues to be pain-free. A branch service representative from [facility] is currently visiting with her. 12/16/20 19:26 CT angiogram of the chest impression as follows: 1. No findings of pulmonary embolism. 2. Diffuse fatty infiltration within the liver. 3. Questionable inflammatory change of the tail the pancreas. This could be chronic but please exclude any symptoms of mild pancreatitis. Nothing acute is otherwise seen on CT. Patient has no abdominal pain. We will give her 1 mg of oral Ativan. We will discharge her home on tapering Ativan. Plan is for her to go to [facility] tomorrow morning for open intake as they did not feel that she required inpatient. Patient will go home with her friend this evening. Advised that it is imperative that she does not consume alcohol while taking Ativan and she verbalized understanding. Discharge instructions as documented. Departure - Departure Time of Disposition: 19:26 Disposition: Home, Self-Care 01 Condition: Good Clinical Impression: Atypical chest pain Alcohol withdrawal syndrome Qualifiers: Complication of substance-induced condition: uncomplicated Qualified Code(s): F10.230 - Alcohol dependence with withdrawal, uncomplicated Prescriptions: LORazepam [Ativan] 1 mg PO ASDIRECTED #18 tab Instructions: Nonspecific Chest Pain, Adult, Alcohol Withdrawal Syndrome, [id number] Forms: ED Department Discharge Additional Instructions: You were seen in the emergency department today for an episode of chest pain as well as alcohol withdrawal. Work-up included blood work, EKG, chest x-ray, Covid test, chest CT. Results of your work-up show that you do have elevated liver enzymes and that your liver is enlarged. It is otherwise unremarkable. While in the ER, you received IV fluids and Ativan to help with your withdrawal symptoms. You did visit with a branch service representative from [facility] and the recommendation is for you to follow-up in the morning for open intake. We will discharge you home on tapering Ativan. Take this only as prescribed. Do not consume any alcohol while taking this medication as they can interact and cause excessive sedation. Follow-up with [facility] as planned. If you should experience any new or worsening symptoms of concern, please not hesitate to return to the emergency department for reevaluation. Sepsis Event Note (ED) - Evaluation Sepsis Screening Result: No Definite Risk - Focused Exam Vital Signs: Vital Signs Temp Pulse Resp BP Pulse Ox 12/16/20 15:37 98.6 F 107 H 20 150/101 H 99 - My Orders Last 24 Hours: My Active Orders 12/16/20 16:34 Peripheral IV Care [RC] . DIRECTED Sodium Chloride 0.9% [Saline Flush] 10 ml FLUSH ASDIRECTED PRN Peripheral IV Insertion Adult [OM.PC] Stat 12/16/20 19:00 Sodium Chloride 0.9% [Normal Saline] 100 ml IV ASDIRECTED - Assessment/Plan Last 24 Hours: My Active Orders 12/16/20 16:34 Peripheral IV Care [RC] . DIRECTED Sodium Chloride 0.9% [Saline Flush] 10 ml FLUSH ASDIRECTED PRN Peripheral IV Insertion Adult [OM.PC] Stat 12/16/20 19:00 Sodium Chloride 0.9% [Normal Saline] 100 ml IV ASDIRECTED
--- NOTE | 2020-12-16 18:45 | CR ---
Chest: 2 views of the chest were obtained. Comparison: Prior chest x-ray of 01/02/18. Heart size and mediastinum are normal. Lungs are clear with no acute parenchymal change. No acute osseous abnormality is appreciated. Impression: 1. Nothing acute is seen on 2 view chest x-ray. Diagnostic code #1
[2020-12-16] MEDS ORDERED: Sodium Chloride 0.9% 100 ML IV SCH (19:00)
[2020-12-16] MEDS ORDERED: Iopamidol 755 Mg/ML 100 ML Bottle IVPUSH ONE (19:00)
[2020-12-16] MEDS ORDERED: Sodium Chloride 0.9% 10 ML SDV FLUSH ONE (19:00)
--- NOTE | 2020-12-16 19:18 | CT ---
CT chest Technique: Multiple axial sections through the chest were obtained. Intravenous contrast was utilized. Study has been performed as a pulmonary angiogram protocol. Comparison: No prior chest CT study is available, prior chest x-ray study performed earlier on the same day (5:10 PM). Findings: Pulmonary arteries are fairly well opacified. No filling defects are seen to indicate pulmonary emboli. Thoracic aorta shows no aneurysm. Mediastinum shows no adenopathy. No pericardial thickening is seen. Diffuse fatty infiltration is noted within the liver. Very minimal density is noted off the tail of the pancreas and difficult to exclude minimal pancreatitis if patient has any correlating symptoms. Lung window settings were reviewed which show no acute parenchymal change. No pleural effusions are seen. Bone window settings were reviewed. No acute osseous abnormality is appreciated. Impression: 1. No findings of pulmonary embolism. 2. Diffuse fatty infiltration within the liver. 3. Questionable inflammatory change off the tail of the pancreas. This could be chronic but please exclude any symptoms of mild pancreatitis. 4. Nothing acute is otherwise seen on CT study of the chest. Diagnostic code #3
== END 2020-12-16 19:45 | disposition home or self-care (01) ==
LOC: JD.ED 15:35
DX: R07.89 Other chest pain (principal); F10.230 Alcohol dependence with withdrawal, uncomplicated; Z20.822 Contact with and (suspected) exposure to COVID-19; Y90.5 Blood alcohol level of 100-119 mg/100 ml
CPT/HCPCS: 36415; 71046; 71275; 80053; 80307; 83735; 84484; 85025; 85379; 86140; 87635; 93005; 96374; 99285; J2060; J7030; Q9967; 93010; 99284; U0002

== ENCOUNTER 2022-01-02 15:09 | Emergency (ER) | payer MEDICAID ==
[2022-01-02] MEDS ORDERED: Ondansetron 4 MG/2 ML SDV IVPUSH ONE (15:33)
[2022-01-02] MEDS ORDERED: LORazepam 2 MG/ML SDV IVPUSH ONE (15:35)
[2022-01-02] MEDS ORDERED: Sodium Chloride 0.9% 1,000 ML IV ONE (15:35)
[2022-01-25 12:21] VITALS: BP 177/114; PULSE 155
[2022-01-31 13:26] LABS: ESTIMATED GFR 83 mL/min (>60)
== END 2022-01-02 20:22 | disposition left against medical advice (07) ==
LOC: JD.ED 15:09
DX: F10.129 Alcohol abuse with intoxication, unspecified (principal)
CPT/HCPCS: 36415; 71045; 80053; 80307; 82550; 84484; 84703; 85025; 93005; 96361; 96374; 96375; 99284; J2060; J2405; J7030; 99282

== ENCOUNTER 2022-04-26 13:36 | Inpatient (IN) | payer MEDICAID ==
[2022-04-26] MEDS ORDERED: Sodium Chloride 0.9% 10 ML Syringe FLUSH PRN (13:45)
[2022-04-26] MEDS ORDERED: Adenosine 6 MG/2 ML SDV ONE (13:56)
[2022-04-26] MEDS ORDERED: Adenosine 6 MG/2 ML SDV IVPUSH ONE ×2 (13:57)
[2022-04-26] MEDS ORDERED: Adenosine 12 MG/4 ML SDV ONE (13:57)
[2022-04-26] MEDS ORDERED: Lactated Ringers 1,000 ML ONE (13:58)
[2022-04-26] MEDS ORDERED: Lactated Ringers 1,000 ML IV ONE (14:05)
[2022-04-26] MEDS ORDERED: Ondansetron 4 MG/2 ML SDV IVPUSH ONE (14:14)
[2022-04-26] MEDS ORDERED: Pantoprazole 40 MG Vial IVPUSH ONE (14:14)
[2022-04-26] MEDS ORDERED: LORazepam 2 MG/ML SDV IVPUSH ONE ×2 (14:14→18:16)
[2022-04-26] MEDS ORDERED: LORazepam 2 MG/ML SDV ONE (14:15)
[2022-04-26] MEDS ORDERED: Ondansetron 4 MG/2 ML SDV ONE (14:16)
[2022-04-26] MEDS: Lactated Ringers 1,000 ML IV SCH ×2 (14:31→15:16)
[2022-04-26] MEDS ORDERED: Octreotide 500 MCG in Sodium Chloride 0.9% 499 ML IV SCH ×2 (15:15→18:45)
[2022-04-26] MEDS ORDERED: Octreotide 100 MCG/ML SDV IV ONE (15:30)
[2022-04-26] MEDS: Lactated Ringers 1,000 ML IV ONE ×2 (15:47→18:20)
[2022-04-26] MEDS ORDERED: Magnesium Sulfate/Water 2 GM in Premix Bag 1 BAG IV ONE (16:42)
[2022-04-26] MEDS ORDERED: Lactated Ringers 1,000 ML IV SCH (16:45)
[2022-04-26] MEDS ORDERED: Acetaminophen 325 MG Tab PO PRN (18:33)
[2022-04-26] MEDS ORDERED: LORazepam 2 MG/ML SDV IV SCH (18:45)
[2022-04-26] MEDS: NS + KCl 20mEq/L 1,000 ML IV SCH (20:34)
[2022-04-26] MEDS: Thiamine 100 MG in Sodium Chloride 0.9% 50 ML IV SCH (20:34)
[2022-04-26] MEDS: Pantoprazole 40 MG Vial IVPUSH SCH (20:34)
[2022-04-26] MEDS: Ondansetron 4 MG/2 ML SDV IV PRN (23:03)
[2022-04-27] MEDS: NS + KCl 20mEq/L 1,000 ML IV SCH ×2 (07:10→16:08)
[2022-04-27] MEDS: Ondansetron 4 MG/2 ML SDV IV PRN (07:58)
[2022-04-27] MEDS ORDERED: Lactated Ringers 1,000 ML ONE (08:18)
[2022-04-27] MEDS ORDERED: Lidocaine 1% 4 ML ONE (08:18)
[2022-04-27] MEDS ORDERED: Propofol 200 MG/20 ML SDV ONE ×2 (08:18→08:54)
[2022-04-27] MEDS ORDERED: Midazolam 1 MG/ML 2 ML SDV ONE (08:18)
[2022-04-27] MEDS: Thiamine 100 MG in Sodium Chloride 0.9% 50 ML IV SCH (10:12)
[2022-04-27] MEDS: Pantoprazole 40 MG Vial IVPUSH SCH ×2 (10:13→20:20)
[2022-04-27] MEDS: Benzocaine/Cetylpyridinium/Menthol Lozenge MUCMEM PRN (23:14)
[2022-04-28] MEDS: Benzocaine/Cetylpyridinium/Menthol Lozenge MUCMEM PRN (04:06)
[2022-04-28] MEDS: NS + KCl 20mEq/L 1,000 ML IV SCH (04:11)
[2022-04-28] MEDS: Thiamine 100 MG in Sodium Chloride 0.9% 50 ML IV SCH (08:21)
[2022-04-28] MEDS: Pantoprazole 40 MG Vial IVPUSH SCH (08:22)
[2022-04-28 14:24] VITALS: BP 125/85; PULSE 112
== END 2022-04-28 14:48 | disposition home or self-care (01) | DRG 369 ==
LOC: JD.ED 13:36 → JD.ICU 18:08 → JD.MS 04-27 18:15
PROVIDERS: ADMIT Internal Medicine; ATTEND Internal Medicine
PROC: 0DJ08ZZ Inspection of Upper Intestinal Tract, Via Natural or Artificial Opening Endoscopic (ICD-10-PCS; principal; 2022-04-27)
DX: R00.0 Tachycardia, unspecified (principal); E86.0 Dehydration; R06.02 Shortness of breath; K92.2 Gastrointestinal hemorrhage, unspecified; F10.20 Alcohol dependence, uncomplicated; F15.90 Other stimulant use, unspecified, uncomplicated; F12.10 Cannabis abuse, uncomplicated; K22.6 Gastro-esophageal laceration-hemorrhage syndrome; F10.930 Alcohol use, unspecified with withdrawal, uncomplicated; R74.01 Elevation of levels of liver transaminase levels; F32.A Depression, unspecified; E87.6 Hypokalemia; E83.42 Hypomagnesemia; Z98.890 Other specified postprocedural states; Z97.3 Presence of spectacles and contact lenses
CPT/HCPCS: 36415; 71045; 71045-26; 80053; 80307; 81001; 82977; 83605; 83735; 83880; 84484; 85018; 85025; 85379; 85610; 85730; 86850; 86900; 86901; 87086; 93005; 96361; 96365; 96366; 96368; 96375; 96376; 99285-25; A9270-GY; C9113; J0153; J2060; J2250; J2354-JA; J2405; J2704; J3411; J3475; J3480; J3490; J7040; J7120

== ENCOUNTER 2024-07-30 18:36 | Inpatient (IN) | payer MEDICAID ==
[2024-07-30] MEDS: Sodium Chloride 0.9% 1,000 ML IV ONE ×3 (19:55→22:03)
[2024-07-30 19:56] LABS: BASOPHILS ABSOLUTE AUTO 0.1 K/mm3 (0.0-0.2); BASOPHILS PERCENT AUTO 0.4 % (0.0-1.0); EOSINOPHILS ABSOLUTE AUTO 0.1 K/mm3 (0.0-0.4); EOSINOPHILS PERCENT AUTO 0.3 % (0.0-6.0); HEMATOCRIT 32.2 % (37.0-47.0); HEMOGLOBIN 10.6 gm/dl (12.0-16.0); IMMATURE GRAN ABSOLUTE AUTO 0.07 K/mm3 (0.00-0.05); IMMATURE GRAN PERCENT AUTO 0.3 % (0.0-0.4); LYMPHOCYTES ABSOLUTE AUTO 2.1 K/mm3 (1.0-4.8); LYMPHOCYTES PERCENT AUTO 10.6 % (24.0-44.0); MEAN CORPUSCULAR HEMOGLOBIN 33.9 pg (28.0-32.0); MEAN CORPUSCULAR HGB CONC 32.9 g/dl (32.0-36.0); MEAN CORPUSCULAR VOLUME 102.9 fl (83.0-99.0); MEAN PLATELET VOLUME 10.5 fl (9.4-12.3); MONOCYTES ABSOLUTE AUTO 1.2 K/mm3 (0.0-0.8); MONOCYTES PERCENT AUTO 5.8 % (0.0-8.0); NEUTROPHILS ABSOLUTE AUTO 16.6 K/mm3 (1.8-7.7); NEUTROPHILS PERCENT AUTO 82.6 % (41.0-71.0); PLATELET COUNT,PLT 321 K/mm3 (150-400); RED BLOOD CELL COUNT 3.13 M/mm3 (4.10-5.30); WHITE BLOOD CELL COUNT,WBC 20.14 K/mm3 (3.9-11.3)
[2024-07-30] MEDS: Sodium Chloride 0.9% 10 ML Syringe FLUSH PRN (19:56)
[2024-07-30] MEDS: HYDROmorphone 1 MG/ML Syringe IVPUSH ONE ×2 (20:19→22:01)
[2024-07-30 20:23] LABS: A/G RATIO 0.4 (1-2); ALANINE AMINOTRANSFERASE,ALT 35 U/L (14-59); ALBUMIN 2.4 g/dl (3.4-5.0); ALKALINE PHOSPHATASE 88 U/L (46-116); ANION GAP 17.4 (5-15); ASPARTATE AMNIOTRANSFERASE,AST 89 U/L (15-37); BILIRUBIN TOTAL 2.1 mg/dL (0.2-1.0); BLOOD UREA NITROGEN,BUN 8 mg/dL (7-18); BUN/CREATININE RATIO 8.9 (14-18); CALCIUM 8.1 mg/dL (8.5-10.1); CARBON DIOXIDE,CO2 18 mEq/L (21-32); CHLORIDE,CL 99 mEq/L (98-107); CREATININE 0.9 mg/dL (0.55-1.02); EST CRCL DRUG DOSING (CG) 75.45 mL/min; ESTIMATED GFR 81 mL/min (>60); GLUCOSE RANDOM 122 mg/dL (70-99); MAGNESIUM 1.7 mg/dL (1.8-2.4); POTASSIUM,K 3.4 mEq/L (3.5-5.1); PROTEIN TOTAL,TP 9.1 g/dl (6.4-8.2); SODIUM,NA 131 mEq/L (136-145)
[2024-07-30 20:36] LABS: LACTIC ACID 2.6 mmol/L (0.4-2.0)
[2024-07-30 20:37] LABS: TROPONIN I HIGH SENSITIVITY < 4 pg/mL (<=51)
[2024-07-30] MEDS: Piperacillin/Tazobactam 4.5 GM in Sodium Chloride 0.9% 100 ML IV ONE (21:11)
[2024-07-30 21:25] LABS: APPEARANCE,URINE CLEAR (Clear); BILIRUBIN,URINE NEGATIVE (Negative); COLOR,URINE YELLOW (Yellow); GLUCOSE,URINE NEGATIVE (Negative); KETONES,URINE NEGATIVE (Negative); LEUKOCYTE ESTERASE,URINE NEGATIVE (Negative); NITRITE,URINE NEGATIVE (Negative); OCCULT BLOOD,URINE NEGATIVE (Negative); PROTEIN,URINE NEGATIVE (Negative); UROBILINOGEN,URINE 0.2 (0.2-1.0)
[2024-07-30] MEDS ORDERED: Morphine 4 MG/ML Syringe IVPUSH PRN (22:39)
[2024-07-30] MEDS ORDERED: LORazepam 2 MG/ML SDV IVPUSH PRN (22:41)
[2024-07-30 22:46] LABS: LIPASE 21953 U/L (16-77)
[2024-07-30] MEDS: Lactated Ringers 1,000 ML IV ONE (23:56)
[2024-07-30] MEDS: Morphine 2 MG/ML SYRINGE IVPUSH PRN (23:57)
[2024-07-31 04:38] LABS: BASOPHILS ABSOLUTE AUTO 0.1 K/mm3 (0.0-0.2); BASOPHILS PERCENT AUTO 0.4 % (0.0-1.0); EOSINOPHILS PERCENT AUTO 0.1 % (0.0-6.0); HEMATOCRIT 28.8 % (37.0-47.0); HEMOGLOBIN 9.2 gm/dl (12.0-16.0); IMMATURE GRAN ABSOLUTE AUTO 0.08 K/mm3 (0.00-0.05); IMMATURE GRAN PERCENT AUTO 0.5 % (0.0-0.4); LYMPHOCYTES PERCENT AUTO 6.4 % (24.0-44.0); MEAN CORPUSCULAR HEMOGLOBIN 33.5 pg (28.0-32.0); MEAN CORPUSCULAR HGB CONC 31.9 g/dl (32.0-36.0); MEAN CORPUSCULAR VOLUME 104.7 fl (83.0-99.0); MEAN PLATELET VOLUME 10.6 fl (9.4-12.3); MONOCYTES ABSOLUTE AUTO 0.6 K/mm3 (0.0-0.8); MONOCYTES PERCENT AUTO 3.9 % (0.0-8.0); NEUTROPHILS ABSOLUTE AUTO 13.4 K/mm3 (1.8-7.7); NEUTROPHILS PERCENT AUTO 88.7 % (41.0-71.0); PLATELET COUNT,PLT 233 K/mm3 (150-400); RED BLOOD CELL COUNT 2.75 M/mm3 (4.10-5.30); WHITE BLOOD CELL COUNT,WBC 15.06 K/mm3 (3.9-11.3)
[2024-07-31 05:19] LABS: A/G RATIO 0.4 (1-2); ALBUMIN 2.1 g/dl (3.4-5.0); ANION GAP 11.6 (5-15); BILIRUBIN TOTAL 1.8 mg/dL (0.2-1.0); BUN/CREATININE RATIO 7.1 (14-18); CALCIUM 7.6 mg/dL (8.5-10.1); CREATININE 0.7 mg/dL (0.55-1.02); EST CRCL DRUG DOSING (CG) 97.01 mL/min; PHOSPHORUS 3.1 mg/dL (2.6-4.7)
[2024-07-31 05:37] LABS: POTASSIUM,K 3.6 mEq/L (3.5-5.1)
[2024-07-31] MEDS: HYDROmorphone 1 MG/ML Syringe IVPUSH PRN (08:54)
[2024-07-31] MEDS ORDERED: Acetaminophen 325 MG Tab PO PRN (09:39)
[2024-07-31] MEDS ORDERED: Ondansetron 4 MG/2 ML SDV IV PRN (09:39)
[2024-07-31] MEDS: Enoxaparin 40 MG/0.4 ML Syringe SUBCUT SCH (09:57)
[2024-07-31] MEDS: Lactated Ringers 1,000 ML IV SCH (09:58)
[2024-07-31] MEDS: LORazepam 2 MG/ML SDV IVPUSH PRN (10:08)
[2024-07-31] MEDS: Potassium Chloride 20 MEQ Tab.ER PO ONE (10:20)
[2024-07-31 11:27] LABS: FOLIC ACID 7.1 ng/mL (8.6-58.9)
[2024-07-31] MEDS: Folic Acid 1 MG Tab PO SCH (20:09)
[2024-08-01 04:55] LABS: BASOPHILS PERCENT AUTO 0.2 % (0.0-1.0); EOSINOPHILS ABSOLUTE AUTO 0.1 K/mm3 (0.0-0.4); EOSINOPHILS PERCENT AUTO 0.4 % (0.0-6.0); HEMATOCRIT 29.5 % (37.0-47.0); HEMOGLOBIN 9.3 gm/dl (12.0-16.0); IMMATURE GRAN ABSOLUTE AUTO 0.11 K/mm3 (0.00-0.05); IMMATURE GRAN PERCENT AUTO 0.6 % (0.0-0.4); LYMPHOCYTES ABSOLUTE AUTO 1.9 K/mm3 (1.0-4.8); MEAN CORPUSCULAR HEMOGLOBIN 33.5 pg (28.0-32.0); MEAN CORPUSCULAR HGB CONC 31.5 g/dl (32.0-36.0); MEAN CORPUSCULAR VOLUME 106.1 fl (83.0-99.0); MEAN PLATELET VOLUME 10.6 fl (9.4-12.3); MONOCYTES ABSOLUTE AUTO 1.2 K/mm3 (0.0-0.8); MONOCYTES PERCENT AUTO 6.7 % (0.0-8.0); NEUTROPHILS ABSOLUTE AUTO 15.3 K/mm3 (1.8-7.7); NEUTROPHILS PERCENT AUTO 82.1 % (41.0-71.0); PLATELET COUNT,PLT 253 K/mm3 (150-400); RED BLOOD CELL COUNT 2.78 M/mm3 (4.10-5.30); WHITE BLOOD CELL COUNT,WBC 18.61 K/mm3 (3.9-11.3)
[2024-08-01 05:37] LABS: A/G RATIO 0.3 (1-2); ALBUMIN 1.8 g/dl (3.4-5.0); BILIRUBIN TOTAL 1.8 mg/dL (0.2-1.0); C-REACTIVE PROTEIN 5.3 mg/dL (<0.30); CALCIUM 7.3 mg/dL (8.5-10.1); CREATININE 0.7 mg/dL (0.55-1.02); EST CRCL DRUG DOSING (CG) 97.01 mL/min; MAGNESIUM 1.7 mg/dL (1.8-2.4); PHOSPHORUS 2.2 mg/dL (2.6-4.7); PROTEIN TOTAL,TP 7.4 g/dl (6.4-8.2)
[2024-08-01] MEDS: Sennosides/Docusate Sodium 50-8.6 MG Tab PO PRN (09:09)
[2024-08-01] MEDS: Magnesium Sulf/Wat 4 GM/50 mL 4 GM in Premix Bag 1 BAG IV ONE (10:34)
[2024-08-01] MEDS: cefTRIAXone 2 GM Vial IVPUSH ONE (10:35)
[2024-08-01] MEDS ORDERED: Sodium Chloride 0.9% 1,000 ML IV SCH (11:00)
[2024-08-01] MEDS: Metoprolol Succinate 25 MG Tab.ER PO SCH (14:05)
[2024-08-01] MEDS: Sodium Phosphate 30 MMOLE in Sodium Chloride 0.9% 250 ML IV ONE (14:54)
[2024-08-02 05:41] LABS: BASOPHILS ABSOLUTE AUTO 0.1 K/mm3 (0.0-0.2); BASOPHILS PERCENT AUTO 0.5 % (0.0-1.0); EOSINOPHILS ABSOLUTE AUTO 0.2 K/mm3 (0.0-0.4); EOSINOPHILS PERCENT AUTO 0.7 % (0.0-6.0); HEMATOCRIT 29.5 % (37.0-47.0); HEMOGLOBIN 9.5 gm/dl (12.0-16.0); IMMATURE GRAN PERCENT AUTO 0.8 % (0.0-0.4); LYMPHOCYTES ABSOLUTE AUTO 1.8 K/mm3 (1.0-4.8); LYMPHOCYTES PERCENT AUTO 7.5 % (24.0-44.0); MEAN CORPUSCULAR HEMOGLOBIN 33.3 pg (28.0-32.0); MEAN CORPUSCULAR HGB CONC 32.2 g/dl (32.0-36.0); MEAN CORPUSCULAR VOLUME 103.5 fl (83.0-99.0); MEAN PLATELET VOLUME 10.3 fl (9.4-12.3); MONOCYTES ABSOLUTE AUTO 1.6 K/mm3 (0.0-0.8); MONOCYTES PERCENT AUTO 6.4 % (0.0-8.0); NEUTROPHILS ABSOLUTE AUTO 20.4 K/mm3 (1.8-7.7); NEUTROPHILS PERCENT AUTO 84.1 % (41.0-71.0); PLATELET COUNT,PLT 279 K/mm3 (150-400); RED BLOOD CELL COUNT 2.85 M/mm3 (4.10-5.30); WHITE BLOOD CELL COUNT,WBC 24.24 K/mm3 (3.9-11.3)
[2024-08-02 05:58] LABS: INR 1.4; PROTHROMBIN TIME 14.5 SECONDS (9.7-12.0)
[2024-08-02 06:05] LABS: SLIDE REVIEW ABNORMAL SMEAR
[2024-08-02 06:09] LABS: A/G RATIO 0.3 (1-2); ANION GAP 12.2 (5-15); BILIRUBIN DIRECT 1.2 mg/dl (0.0-0.2); BILIRUBIN TOTAL 2.1 mg/dL (0.2-1.0); C-REACTIVE PROTEIN 10.98 mg/dL (<0.30); CALCIUM 7.4 mg/dL (8.5-10.1); CREATININE 0.8 mg/dL (0.55-1.02); EST CRCL DRUG DOSING (CG) 84.88 mL/min; MAGNESIUM 2.5 mg/dL (1.8-2.4); PHOSPHORUS 2.7 mg/dL (2.6-4.7); POTASSIUM,K 4.2 mEq/L (3.5-5.1); PROTEIN TOTAL,TP 7.9 g/dl (6.4-8.2)
[2024-08-02] MEDS: Metoprolol Succinate 25 MG Tab.ER PO SCH (08:16)
[2024-08-02] MEDS: Sodium Chloride 0.9% 1,000 ML IV SCH (08:16)
[2024-08-02] MEDS: oxyCODONE 5 MG Tab PO PRN (08:16)
[2024-08-02] MEDS: Sodium Phosphate 30 MMOLE in Sodium Chloride 0.9% 250 ML IV ONE ×2 (08:34→09:12)
[2024-08-02] MEDS: Iopamidol 612 MG/ML 100 ML Bottle IVPUSH ONE (09:12)
[2024-08-02] MEDS: Sodium Chloride 0.9% 10 ML Syringe FLUSH ONE (09:12)
[2024-08-02] MEDS ORDERED: Ondansetron 4 MG Tab.DIS PO PRN (12:36)
[2024-08-03 05:32] LABS: BASOPHILS ABSOLUTE AUTO 0.1 K/mm3 (0.0-0.2); BASOPHILS PERCENT AUTO 0.3 % (0.0-1.0); EOSINOPHILS ABSOLUTE AUTO 0.1 K/mm3 (0.0-0.4); EOSINOPHILS PERCENT AUTO 0.5 % (0.0-6.0); HEMATOCRIT 27.8 % (37.0-47.0); HEMOGLOBIN 9.3 gm/dl (12.0-16.0); IMMATURE GRAN ABSOLUTE AUTO 0.31 K/mm3 (0.00-0.05); IMMATURE GRAN PERCENT AUTO 1.3 % (0.0-0.4); LYMPHOCYTES ABSOLUTE AUTO 1.4 K/mm3 (1.0-4.8); LYMPHOCYTES PERCENT AUTO 6.1 % (24.0-44.0); MEAN CORPUSCULAR HEMOGLOBIN 33.7 pg (28.0-32.0); MEAN CORPUSCULAR HGB CONC 33.5 g/dl (32.0-36.0); MEAN CORPUSCULAR VOLUME 100.7 fl (83.0-99.0); MEAN PLATELET VOLUME 9.9 fl (9.4-12.3); MONOCYTES ABSOLUTE AUTO 1.6 K/mm3 (0.0-0.8); MONOCYTES PERCENT AUTO 6.6 % (0.0-8.0); NEUTROPHILS ABSOLUTE AUTO 20.3 K/mm3 (1.8-7.7); NEUTROPHILS PERCENT AUTO 85.2 % (41.0-71.0); PLATELET COUNT,PLT 242 K/mm3 (150-400); RED BLOOD CELL COUNT 2.76 M/mm3 (4.10-5.30); WHITE BLOOD CELL COUNT,WBC 23.78 K/mm3 (3.9-11.3)
[2024-08-03 05:49] LABS: A/G RATIO 0.3 (1-2); ALBUMIN 1.8 g/dl (3.4-5.0); BUN/CREATININE RATIO 4.3 (14-18); C-REACTIVE PROTEIN 12.55 mg/dL (<0.30); CALCIUM 7.1 mg/dL (8.5-10.1); CREATININE 0.7 mg/dL (0.55-1.02); EST CRCL DRUG DOSING (CG) 97.01 mL/min; MAGNESIUM 2.2 mg/dL (1.8-2.4); PHOSPHORUS 2.3 mg/dL (2.6-4.7); PROTEIN TOTAL,TP 7.4 g/dl (6.4-8.2)
[2024-08-03 06:00] LABS: SLIDE REVIEW ABNORMAL SMEAR
[2024-08-03 06:08] LABS: ANION GAP 12.6 (5-15)
[2024-08-03 06:23] LABS: POTASSIUM,K 3.6 mEq/L (3.5-5.1)
[2024-08-03] MEDS: Sodium Chloride 0.9% 1,000 ML IV SCH (12:59)
[2024-08-03] MEDS: Acetaminophen/HYDROcodone 325-5 MG Tab PO PRN (12:59)
[2024-08-03] MEDS: Potassium Phosphates 30 MMOLE in Sodium Chloride 0.9% 500 ML IV ONE (14:35)
[2024-08-04 05:41] LABS: BASOPHILS PERCENT AUTO 0.2 % (0.0-1.0); EOSINOPHILS ABSOLUTE AUTO 0.1 K/mm3 (0.0-0.4); EOSINOPHILS PERCENT AUTO 0.5 % (0.0-6.0); HEMATOCRIT 27.9 % (37.0-47.0); HEMOGLOBIN 9.5 gm/dl (12.0-16.0); IMMATURE GRAN ABSOLUTE AUTO 0.18 K/mm3 (0.00-0.05); IMMATURE GRAN PERCENT AUTO 0.8 % (0.0-0.4); LYMPHOCYTES ABSOLUTE AUTO 1.5 K/mm3 (1.0-4.8); LYMPHOCYTES PERCENT AUTO 6.6 % (24.0-44.0); MEAN CORPUSCULAR HEMOGLOBIN 34.5 pg (28.0-32.0); MEAN CORPUSCULAR HGB CONC 34.1 g/dl (32.0-36.0); MEAN CORPUSCULAR VOLUME 101.5 fl (83.0-99.0); MEAN PLATELET VOLUME 9.8 fl (9.4-12.3); MONOCYTES ABSOLUTE AUTO 1.5 K/mm3 (0.0-0.8); MONOCYTES PERCENT AUTO 6.6 % (0.0-8.0); NEUTROPHILS PERCENT AUTO 85.3 % (41.0-71.0); PLATELET COUNT,PLT 255 K/mm3 (150-400); RED BLOOD CELL COUNT 2.75 M/mm3 (4.10-5.30); WHITE BLOOD CELL COUNT,WBC 22.32 K/mm3 (3.9-11.3)
[2024-08-04 06:06] LABS: A/G RATIO 0.3 (1-2); ALBUMIN 1.7 g/dl (3.4-5.0); ANION GAP 11.5 (5-15); BILIRUBIN TOTAL 2.1 mg/dL (0.2-1.0); C-REACTIVE PROTEIN 10.85 mg/dL (<0.30); CALCIUM 7.3 mg/dL (8.5-10.1); CREATININE 0.6 mg/dL (0.55-1.02); EST CRCL DRUG DOSING (CG) 113.18 mL/min; MAGNESIUM 1.8 mg/dL (1.8-2.4); PHOSPHORUS 2.3 mg/dL (2.6-4.7); POTASSIUM,K 3.5 mEq/L (3.5-5.1); PROTEIN TOTAL,TP 7.4 g/dl (6.4-8.2)
[2024-08-04] MEDS: Sodium Phosphate 15 MMOLE in Sodium Chloride 0.9% 250 ML IV ONE (10:01)
[2024-08-04] MEDS: Docusate Sodium 100 MG Cap PO SCH (10:06)
[2024-08-04] MEDS: NS + KCl 20mEq/L 1,000 ML IV SCH (10:19)
[2024-08-04] MEDS: HYDROmorphone 1 MG/ML Syringe IVPUSH PRN (17:52)
[2024-08-05 04:44] LABS: HEMATOCRIT 29.1 % (37.0-47.0); HEMOGLOBIN 9.4 gm/dl (12.0-16.0); MEAN CORPUSCULAR HEMOGLOBIN 32.8 pg (28.0-32.0); MEAN CORPUSCULAR HGB CONC 32.3 g/dl (32.0-36.0); MEAN CORPUSCULAR VOLUME 101.4 fl (83.0-99.0); MEAN PLATELET VOLUME 9.7 fl (9.4-12.3); PLATELET COUNT,PLT 264 K/mm3 (150-400); RED BLOOD CELL COUNT 2.87 M/mm3 (4.10-5.30); WHITE BLOOD CELL COUNT,WBC 22.07 K/mm3 (3.9-11.3)
[2024-08-05 05:13] LABS: A/G RATIO 0.3 (1-2); ALBUMIN 1.8 g/dl (3.4-5.0); ANION GAP 12.1 (5-15); BILIRUBIN TOTAL 2.2 mg/dL (0.2-1.0); BUN/CREATININE RATIO 2.9 (14-18); C-REACTIVE PROTEIN 11.14 mg/dL (<0.30); CALCIUM 7.5 mg/dL (8.5-10.1); CREATININE 0.7 mg/dL (0.55-1.02); EST CRCL DRUG DOSING (CG) 97.01 mL/min; POTASSIUM,K 4.1 mEq/L (3.5-5.1); PROTEIN TOTAL,TP 7.5 g/dl (6.4-8.2)
[2024-08-05] MEDS: Furosemide 40 MG/4 ML VIAL IVPUSH ONE (08:41)
[2024-08-05] MEDS: Melatonin 3 MG Tab PO PRN (20:49)
[2024-08-06 04:30] LABS: HEMATOCRIT 26.4 % (37.0-47.0); HEMOGLOBIN 8.7 gm/dl (12.0-16.0); MEAN CORPUSCULAR HEMOGLOBIN 33.3 pg (28.0-32.0); MEAN CORPUSCULAR VOLUME 101.1 fl (83.0-99.0); MEAN PLATELET VOLUME 10.1 fl (9.4-12.3); PLATELET COUNT,PLT 204 K/mm3 (150-400); RED BLOOD CELL COUNT 2.61 M/mm3 (4.10-5.30); WHITE BLOOD CELL COUNT,WBC 17.73 K/mm3 (3.9-11.3)
[2024-08-06 04:59] LABS: A/G RATIO 0.3 (1-2); ALBUMIN 1.6 g/dl (3.4-5.0); ANION GAP 12.5 (5-15); BILIRUBIN TOTAL 1.7 mg/dL (0.2-1.0); C-REACTIVE PROTEIN 8.32 mg/dL (<0.30); CALCIUM 7.5 mg/dL (8.5-10.1); CREATININE 0.6 mg/dL (0.55-1.02); EST CRCL DRUG DOSING (CG) 113.18 mL/min; MAGNESIUM 1.8 mg/dL (1.8-2.4); PHOSPHORUS 3.3 mg/dL (2.6-4.7); POTASSIUM,K 3.5 mEq/L (3.5-5.1); PROTEIN TOTAL,TP 6.7 g/dl (6.4-8.2)
[2024-08-06] MEDS: HYDROmorphone 1 MG/ML Syringe IVPUSH PRN (08:24)
[2024-08-07 04:20] LABS: HEMATOCRIT 27.4 % (37.0-47.0); HEMOGLOBIN 9.1 gm/dl (12.0-16.0); MEAN CORPUSCULAR HEMOGLOBIN 33.5 pg (28.0-32.0); MEAN CORPUSCULAR HGB CONC 33.2 g/dl (32.0-36.0); MEAN CORPUSCULAR VOLUME 100.7 fl (83.0-99.0); MEAN PLATELET VOLUME 9.5 fl (9.4-12.3); PLATELET COUNT,PLT 219 K/mm3 (150-400); RED BLOOD CELL COUNT 2.72 M/mm3 (4.10-5.30); WHITE BLOOD CELL COUNT,WBC 14.15 K/mm3 (3.9-11.3)
[2024-08-07 04:44] LABS: A/G RATIO 0.3 (1-2); ALBUMIN 1.6 g/dl (3.4-5.0); ANION GAP 11.3 (5-15); BILIRUBIN TOTAL 1.3 mg/dL (0.2-1.0); BUN/CREATININE RATIO 1.7 (14-18); C-REACTIVE PROTEIN 6.77 mg/dL (<0.30); CALCIUM 7.7 mg/dL (8.5-10.1); CREATININE 0.6 mg/dL (0.55-1.02); EST CRCL DRUG DOSING (CG) 113.18 mL/min; POTASSIUM,K 3.3 mEq/L (3.5-5.1); PROTEIN TOTAL,TP 7.1 g/dl (6.4-8.2)
[2024-08-07] MEDS: Furosemide 20 MG/2 ML VIAL IVPUSH ONE (08:38)
[2024-08-07] MEDS: Potassium Chloride 20 MEQ Tab.ER PO SCH (08:39)
[2024-08-08 06:08] LABS: A/G RATIO 0.3 (1-2); ALBUMIN 1.6 g/dl (3.4-5.0); ANION GAP 10.3 (5-15); BILIRUBIN TOTAL 1.3 mg/dL (0.2-1.0); C-REACTIVE PROTEIN 5.28 mg/dL (<0.30); CALCIUM 7.6 mg/dL (8.5-10.1); CREATININE 0.6 mg/dL (0.55-1.02); EST CRCL DRUG DOSING (CG) 113.18 mL/min; POTASSIUM,K 3.3 mEq/L (3.5-5.1); PROTEIN TOTAL,TP 6.6 g/dl (6.4-8.2)
[2024-08-08 10:40] VITALS: BP 112/73; PULSE 107
== END 2024-08-08 10:24 | disposition home or self-care (01) | DRG 439 ==
LOC: JD.ED 18:36 → JD.MS 22:44
PROVIDERS: ADMIT Student in an Organized Health Care Education/Training Program; ATTEND Internal Medicine
DX: K85.20 Alcohol induced acute pancreatitis without necrosis or infection (principal); K86.3 Pseudocyst of pancreas; K80.20 Calculus of gallbladder without cholecystitis without obstruction; J45.909 Unspecified asthma, uncomplicated; F32.A Depression, unspecified; D50.9 Iron deficiency anemia, unspecified; F12.90 Cannabis use, unspecified, uncomplicated; E53.8 Deficiency of other specified B group vitamins; E80.6 Other disorders of bilirubin metabolism; D72.829 Elevated white blood cell count, unspecified; R94.31 Abnormal electrocardiogram [ECG] [EKG]; E83.42 Hypomagnesemia; E83.39 Other disorders of phosphorus metabolism; F10.20 Alcohol dependence, uncomplicated; Z98.891 History of uterine scar from previous surgery; Z87.891 Personal history of nicotine dependence
CPT/HCPCS: 36415; 51798; 71275; 71275-26; 74177; 74177-26; 74181; 74181-26; 76705; 76705-26; 80053; 80307; 81003; 82248; 82607; 82746; 83605; 83690; 83735; 84100; 84478; 84484; 84703; 85025; 85027; 85610; 86140; 87040; 93005; 93010; 96361; 96365; 96375; 96376; 99285; 99285-25; A9270-GY; J0696; J1171; J1650; J1938; J2060; J2270; J2543; J3475; J3480; J3490; J7030; J7040; J7120; Q9967

== ENCOUNTER 2025-01-11 04:03 | Emergency (ER) | payer BC ==
[2025-01-11 05:37] LABS: BASOPHILS ABSOLUTE AUTO 0.0 K/mm3 (0.0-0.2); BASOPHILS PERCENT AUTO 0.4 % (0.0-1.0); EOSINOPHILS ABSOLUTE AUTO 0.1 K/mm3 (0.0-0.4); EOSINOPHILS PERCENT AUTO 1.1 % (0.0-6.0); IMMATURE GRAN ABSOLUTE AUTO 0.02 K/mm3 (0.00-0.05); IMMATURE GRAN PERCENT AUTO 0.4 % (0.0-0.4); LYMPHOCYTES ABSOLUTE AUTO 1.4 K/mm3 (1.0-4.8); LYMPHOCYTES PERCENT AUTO 29.5 % (24.0-44.0); MEAN PLATELET VOLUME 9.5 fl (9.4-12.3); MONOCYTES ABSOLUTE AUTO 0.5 K/mm3 (0.0-0.8); MONOCYTES PERCENT AUTO 11.6 % (0.0-8.0); NEUTROPHILS ABSOLUTE AUTO 2.6 K/mm3 (1.8-7.7); NEUTROPHILS PERCENT AUTO 57.0 % (41.0-71.0); NRBC ABSOLUTE 0.00 (0.00-0.02); NRBC PERCENT 0.0 % (0.0-0.2); PLATELET COUNT,PLT 47 K/mm3 (150-400); RED BLOOD CELL COUNT 2.40 M/mm3 (4.10-5.30); WHITE BLOOD CELL COUNT,WBC 4.64 K/mm3 (3.9-11.3)
[2025-01-11] MEDS: LORazepam 2 MG/ML SDV IVPUSH ONE (05:55)
[2025-01-11] MEDS ORDERED: Sodium Chloride 0.9% 10 ML Syringe FLUSH PRN (05:56)
[2025-01-11 06:13] LABS: INR 1.67
[2025-01-11 06:14] LABS: PTT,PARTIAL THROMBOPLSTIN TIME 29.3 SECONDS (21.7-31.4)
[2025-01-11 06:25] LABS: LACTIC ACID 1.9 mmol/L (0.4-2.0)
[2025-01-11 06:30] LABS: A/G RATIO 0.4 (1-2); ALANINE AMINOTRANSFERASE,ALT 38.0 U/L (14-59); ASPARTATE AMNIOTRANSFERASE,AST 84.0 U/L (15-37); BILIRUBIN TOTAL 2.5 mg/dL (0.2-1.0); BLOOD UREA NITROGEN,BUN 6.0 mg/dL (7-18); CARBON DIOXIDE,CO2 27.0 mEq/L (21-32); CHLORIDE,CL 100.0 mEq/L (98-107); CREATININE 0.7 mg/dL (0.55-1.02); EST CRCL DRUG DOSING (CG) 97.01 mL/min; ESTIMATED GFR 110.0 mL/min (>60); GLUCOSE RANDOM 100.0 mg/dL (70-99); PROTEIN TOTAL,TP 7.6 g/dl (6.4-8.2); SODIUM,NA 138.0 mEq/L (136-145); TROPONIN I HIGH SENSITIVITY 23.0 pg/mL (<=51)
[2025-01-11 06:34] LABS: POTASSIUM,K 2.0 mEq/L (3.5-5.1)
[2025-01-11 06:35] LABS: ETHANOL BLOOD MEDICAL 0.0 gm% (0.00); TSH 1.557 uIU/mL (0.358-3.74)
[2025-01-11] MEDS: Iopamidol 755 Mg/ML 100 ML Bottle IVPUSH ONE (06:58)
[2025-01-11] MEDS: Potassium Chloride 20 MEQ Tab.ER PO ONE (07:04)
[2025-01-11] MEDS: Magnesium Sulf/Wat 4 GM/50 mL 4 GM in Premix Bag 1 BAG IV ONE (07:06)
[2025-01-11] MEDS: Sodium Chloride 0.9% 10 ML Syringe FLUSH PRN ×2 (07:16)
[2025-01-11 12:39] VITALS: BP 117/80; PULSE 100
== END 2025-01-11 11:50 ==
LOC: JD.ED 04:03
DX: R07.9 Chest pain, unspecified (principal); J45.909 Unspecified asthma, uncomplicated; R00.2 Palpitations; D64.9 Anemia, unspecified; D69.6 Thrombocytopenia, unspecified; E83.42 Hypomagnesemia; K92.1 Melena; E87.6 Hypokalemia; F10.139 Alcohol abuse with withdrawal, unspecified; Z79.899 Other long term (current) drug therapy
CPT/HCPCS: 36415; 36430; 71045; 71275; 74177; 80053; 80179; 80307; 83605; 83690; 83735; 83880; 84443; 84484; 84703; 85025; 85610; 85730; 86850; 86900; 86901; 86922; 87040; 93005; 96361; 96365; 96366; 96367; 96368; 96375; 99285; A9270; J2060; J2470; J3475; J3480; J7030; P9016; Q9967